=== PATIENT | female | born 1950 | race Caucasian/White ===

== ENCOUNTER 2019-06-27 19:48 | Inpatient (IN) | payer OTHER ==
[~2019-06-27] VITALS: Ht 157.5 cm; Wt 95.3 kg
[2019-06-27 02:30] VITALS: BP 143/93
[~2019-06-27 19:48] MED LIST: AMLODIPINE BESYL5 MG PO; CALCIUM CARBON500 MG PO; CLONAZEPAM0.5 MG PO; DIOVAN160 MG PO; LEVOTHYROXINE50 MCG PO; METOPROLOL TART50 MG PO; ULTRAM 50MG50 MG PO; VITAMIN B-121000 MCG PO; VITAMIN D1000 UNI1 PO; XARELTO10 MG PO
--- OUTSIDE RECORDS SUMMARY | 2019-06-27 19:51 | XMS REPORT | Clinical Summary ---
Author Author [facility] Organization [facility] Address Unknown Phone Unavailable Care Team Providers Care Television Reporter Name Role Phone Asked, No Pcp PCP Unavailable Allergies Not on File Medications Not on file Active Problems Not on file Social History Date Tobacco Use Types Packs/Day Years Used Never Assessed Sex Assigned at Date Recorded Not on file Industry Job Start Date Occupation Not on file Not on file Not on file Travel End Travel History Travel Start No recent travel history available. 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
--- OUTSIDE RECORDS SUMMARY | 2019-06-27 19:51 | XMS REPORT ---
Author Author [facility] Address Unknown Phone Unavailable Care Team Providers Care Nurse Private Duty Name Role Phone Unavailable Unavailable Problems This patient has no known problems. Allergies, Adverse Reactions, Alerts This patient has no known allergies or adverse reactions. Medications This patient has no known medications. Results Test Description Test Time Test Comments Text Results Atomic Results Result Comments SCR MAMM BILATERAL NAVIN CAD DIGITAL 2019-05-12 11:12:02 - SCR MAMM BILATERAL NAVIN CAD DIGITALBILATERAL DIGITAL SCREENING MAMMOGRAM 3D/2D WITH CAD: 05/11/2019CLINICAL: Asymptomatic. Digital breast tomosynthesis was performed in addition to routine CC and MLO views. Current mammographic images were evaluated by either a Molecule Synth M-Vu or a Clixtr ImageChecker CAD (computer aided detection system). Comparison is made to exams dated 08/08/2017 mammogram, mammogram, and 05/26/2015 mammogram - [facility]. The tissue of both breasts is predominantly fatty. There is a benign-appearing asymmetry in both breasts. No suspicious mass, architectural distortion, malignant type calcification, or lymph node abnormality detected. Breast architecture is stable compared to prior exams.IMPRESSION: BENIGNThere is no mammographic evidence of malignancy. Resume annual screening mammography in one year. Gerardo Mcallister M.D. rb/:05/12/2019 11:12:02 Retail Banker: Elidia Fuentes [facility], [facility] sent: BIR ADS 1-2 Normal Mammogram BI-RADS: 2 Benign
--- NOTE | 2019-06-27 20:55 | NUR ---
4MG IV ZOFRAN GIVEN
[2019-06-27] MEDS ORDERED: ONDANSETRON HCL INJ 2MG/ML 2ML 2 MG/ML VIAL ONE (20:59)
--- NOTE | 2019-06-27 21:19 | Diagnostic Imaging Report ---
History: Headaches Comparison studies: None Technique: Axial images were obtained from the skull base to the vertex. Coronal and sagittal reconstructions obtained from the axial data. Dose modulation, iterative reconstruction, and/or weight based adjustment of the mA/kV was utilized to reduce the radiation dose to as low as reasonably achievable. Intravenous contrast: None Findings: Scalp/skull: No abnormalities. No fractures, blastic or lytic lesions. Extra-axial spaces: No masses. No fluid collections. Brain sulci: Appropriate for age. Ventricles: Normal in size and configuration. No hydrocephalus. Parenchyma: No abnormal densities. No masses, hemorrhage, acute or chronic cortical vascular insults. Sellar/suprasellar region: No abnormalities Craniocervical junction: Patent foramen magnum. No Chiari one malformation. Incidental findings: None. IMPRESSION: No abnormalities. Signed by: Dr. Rafat Whitaker M.D. on 06/27/2019 9:16 PM
[2019-06-27 21:32] LABS: BASOPHILS % 0.3 % (0.0-1.0); EOSINOPHILS # (AUTO) 0.2 (0.0-0.4); EOSINOPHILS % 2.4 % (0.0-6.0); HEMATOCRIT 46.8 % (34.2-44.1); HEMOGLOBIN 15.1 g/dL (12.0-16.0); LYMPHOCYTES # (AUTO) 1.6 (1.0-3.2); MEAN CORPUSCULAR HEMOGLOBIN 29.9 pg (28-32); MEAN CORPUSCULAR HGB CONC 32.3 g/dL (31-35); MEAN CORPUSCULAR VOLUME 92.7 fL (81-99); MONOCYTES # (AUTO) 0.4 (0.2-0.8); MONOCYTES % 4.8 % (4.4-11.3); NEUTROPHILS # (AUTO) 6.7 (2.1-6.9); NEUTROPHILS % 74.2 % (38.7-80.0); PLATELET COUNT 248 x10e3/uL (140-360); RED BLOOD COUNT 5.05 x10e6/uL (3.6-5.1); RED CELL DISTRIBUTION WIDTH 13.5 % (11.7-14.4)
[2019-06-27] MEDS ORDERED: MORPHINE SULFATE 2 MG/ML SYR 1ML IV STA (21:34)
[2019-06-27] MEDS ORDERED: ONDANSETRON HCL INJ 2MG/ML 2ML 2 MG/ML VIAL IV STA (21:34)
--- NOTE | 2019-06-27 21:38 | Diagnostic Imaging Report ---
EXAMINATION: PA and lateral views of the chest. COMPARISON: Chest 2 views 11/08/2015 CLINICAL HISTORY: Chest pain for one week DISCUSSION: Lines/tubes: None. Lungs: The lungs are well inflated and clear. There is no evidence of pneumonia or pulmonary edema. Pleura: There is no pleural effusion or pneumothorax. Heart and mediastinum: Stable mild enlargement of the cardiac silhouette. Pulmonary vasculature is normal. Bones and soft tissues: No acute bony abnormalities. Mild age-appropriate degenerative changes in the thoracic spine. IMPRESSION: Stable mild enlargement of the cardiac silhouette, without acute cardiopulmonary abnormalities. Signed by: Dr. Kolby Garcia M.D. on 06/27/2019 9:35 PM
[2019-06-27 21:43] LABS: INR 1.19; PROTHROMBIN TIME 15.7 seconds (11.9-14.5)
[2019-06-27 21:44] LABS: PARTIAL THROMBOPLASTIN TIME 33.9 seconds (23.8-35.5)
[2019-06-27] MEDS ORDERED: SODIUM CHLORIDE 0.9% 500ML 500 ML IV ONE (21:45)
[2019-06-27 21:53] LABS: ALBUMIN 3.5 g/dL (3.5-5.0); ALBUMIN/GLOBULIN RATIO 0.8 (0.8-2.0); ANION GAP 16.8 mmol/L (8-16); CALCIUM 9.4 mg/dL (8.4-10.2); CREATININE, SERUM 1.02 mg/dL (0.57-1.11); POTASSIUM 4.8 mmol/L (3.5-5.1)
[2019-06-27 22:00] LABS: CREATINE KINASE MB 0.6 ng/mL (0-5.0)
[2019-06-27 22:56] LABS: EOSINOPHILS % (MANUAL) 2 % (0-7); LYMPHOCYTES % (MANUAL) 19 % (19-48); MONOCYTES % (MANUAL) 4 % (3.4-9.0); NEUTROPHILS % (MANUAL) 75 % (40-74); PLATELET ESTIMATE ADEQUATE
[2019-06-27] MEDS ORDERED: ACETAMIN/BUTALBITAL/CAFFEINE TAB PO ONE (23:00)
[2019-06-27] MEDS ORDERED: TRAMADOL HCL 50 MG TAB PO ONE (23:15)
[2019-06-27] MEDS ORDERED: HYDRALAZINE HCL50 MG (23:21)
[2019-06-27] MEDS ORDERED: NEXIUM40 MG (23:21)
--- NOTE | 2019-06-27 23:50 | NUR ---
REPORT GIVEN TO YELITZA HILL RN FOR CONTINUITY OF CARE.
[2019-06-27] MEDS ORDERED: HYDRALAZINE HCL 20 MG/ML VIAL IV STA (23:53)
[2019-06-27] MEDS ORDERED: HYDRALAZINE HCL 20 MG/ML VIAL ONE (23:58)
[2019-06-28] VITALS (10 sets, daily range): BP systolic 127–144; BP diastolic 72–99
[2019-06-28] MEDS ORDERED: HYDRALAZINE HCL 20 MG/ML VIAL IV PRN
--- OUTSIDE RECORDS SUMMARY | 2019-06-28 00:09 | XMS REPORT | Clinical Summary ---
Author Author [facility] Organization [facility] Address Unknown Phone Unavailable Care Team Providers Care Custom Tailor Name Role Phone Asked, No Pcp PCP [...] INFLUENZA VACCINE 05/06/2019 Results Not on fileafter 06/27/2018 Insurance Type Payer Benefit Subscriber ID Effective Phone Address Plan / Dates Group HMO [employer] TEXANPLUS xxxxxxxxx 2016-P CLAUDIO gale Advance Directives For more information, please contact: [phone] Patient Assistant Professor Of Music Explanation Type Date Recorded Advance Directives, Living Will and Medical Power of Marketing Programs Manager
--- NOTE | 2019-06-28 00:49 | NUR ---
PT PLACED ON TELE BOX 20
--- NOTE | 2019-06-28 01:00 | NUR ---
PT ARRIVED ON THE UNIT VIA WHEELCHAIR AT 0100. PT IS A&OX3. RESPIRATION IS EVEN AND UNLABORED, NO DISTRESS NOTED. BED IN THE LOWEST POSITION, LOCKED, AND CALL LIGHT WITHIN REACH. ADMISSION AND HEAD TO TOE ASSESSMENT COMPLETE. WILL CONTINUE TO MONITOR.
[2019-06-28] MEDS: ONDANSETRON HCL INJ 2MG/ML 2ML 2 MG/ML VIAL IV PRN ×2 (04:30→12:41)
[2019-06-28 07:31] LABS: BASOPHILS % 0.2 % (0.0-1.0); EOSINOPHILS % 0.4 % (0.0-6.0); HEMATOCRIT 44.5 % (34.2-44.1); HEMOGLOBIN 14.4 g/dL (12.0-16.0); LYMPHOCYTES % 23.8 % (18.0-39.1); MEAN CORPUSCULAR HEMOGLOBIN 30.3 pg (28-32); MEAN CORPUSCULAR HGB CONC 32.4 g/dL (31-35); MEAN CORPUSCULAR VOLUME 93.5 fL (81-99); MONOCYTES # (AUTO) 0.6 (0.2-0.8); MONOCYTES % 7.6 % (4.4-11.3); NEUTROPHILS # (AUTO) 5.7 (2.1-6.9); NEUTROPHILS % 67.6 % (38.7-80.0); PLATELET COUNT 231 x10e3/uL (140-360); RED BLOOD COUNT 4.76 x10e6/uL (3.6-5.1); RED CELL DISTRIBUTION WIDTH 13.5 % (11.7-14.4)
[2019-06-28 07:53] LABS: ALANINE AMINOTRANSFERASE 38 IU/L (0-55); ALBUMIN/GLOBULIN RATIO 0.9 (0.8-2.0); ALKALINE PHOSPHATASE 103 IU/L (40-150); ANION GAP 11.1 mmol/L (8-16); BLOOD UREA NITROGEN 13 mg/dL (7-26); BUN/CREATININE RATIO 14 (6-25); CALCIUM 8.9 mg/dL (8.4-10.2); CARBON DIOXIDE 28 mmol/L (22-29); CHLORIDE 100 mmol/L (98-107); CREATININE, SERUM 0.91 mg/dL (0.57-1.11); EST GLOMERULAR FILTRATION RATE > 60 ML/MIN (60-); GLUCOSE 95 mg/dL (74-118); POTASSIUM 4.1 mmol/L (3.5-5.1); SODIUM 135 mmol/L (136-145)
[2019-06-28 08:08] LABS: CREATINE KINASE 31 IU/L (29-168)
[2019-06-28] MEDS: HYDRALAZINE HCL 100 MG TABLET PO SCH ×2 (08:09→18:01)
[2019-06-28] MEDS: MORPHINE SULFATE 2 MG/ML SYR 1ML IV PRN ×2 (08:20→15:43)
[2019-06-28] MEDS: METOPROLOL TARTRATE 50 MG TAB PO SCH ×2 (08:20→18:01)
[2019-06-28] MEDS: LEVOTHYROXINE SODIUM 50 MCG TAB PO SCH (08:25)
[2019-06-28] MEDS: OYST-CAL-D 500MG TABLET PO SCH (08:25)
[2019-06-28] MEDS: CHOLECALCIFEROL 1,000 UNIT TAB PO SCH (08:25)
[2019-06-28] MEDS: PANTOPRAZOLE SOD 40 MG TABEC PO SCH (08:25)
[2019-06-28] MEDS: CYANOCOBALAMIN 1,000 MCG TAB PO SCH (08:25)
[2019-06-28] MEDS: RIVAROXABAN 10 MG TABLET PO SCH (08:25)
[2019-06-28] MEDS ORDERED: CLONAZEPAM 0.5 MG TAB PO SCH (09:00)
[2019-06-28] MEDS ORDERED: HYDRALAZINE HCL 100 MG SCH (09:00)
[2019-06-28] MEDS ORDERED: NIFEDIPINE CR 30 MG TAB PO ONE (10:00)
--- NOTE | 2019-06-28 11:45 | NUR ---
PT DOWN VIA WC TO RADIOLOGY FOR MRI HEAD AND NECK
--- NOTE | 2019-06-28 12:15 | NUR ---
PT BACK IN ROOM UNABLE TO DO MRI UNABLE TO LAY FLAT
--- NOTE | 2019-06-28 12:40 | NUR ---
PT GIVEN ZOFRAN FOR NAUSEA ORDER.
--- NOTE | 2019-06-28 16:03 | NUR ---
Off unit via for MRI.
--- NOTE | 2019-06-28 16:09 | History and Physical ---
CHIEF COMPLAINT: Severe headache with elevated blood pressure prior to blood pressure medication adjustment. HISTORY OF PRESENT ILLNESS: This is a 69-year-old female with a very high blood pressure, developed headaches; went to her neon sign mechanic, Dr. Garcia, and her medication was adjusted. The hydralazine dosing was increased. The patient is at baseline with hypertension, atrial fibrillation. She is on Xarelto. The patient is otherwise, stable. She also has history of multiple TIA. Currently, the patient headache has improved. PAST MEDICAL HISTORY: Hypertension with recurrent hypertensive urgency, atrial fibrillation, hypothyroidism, and transient ischemic attack. PAST SURGICAL HISTORY: Noncontributory. SOCIAL HISTORY: The patient does not smoke or use alcohol. No regular drugs. ALLERGIES: ACETAMINOPHEN AND CODEINE. HOME MEDICATIONS: List is reviewed. REVIEW OF SYSTEMS: Headache, improving. PHYSICAL EXAMINATION: VITAL SIGNS: Temperature is 96, blood pressure 143/93, pulse rate 87, and respirations 18. GENERAL: The patient is not in acute distress. HEENT: Normocephalic, atraumatic. Pupils are reactive, anicteric. NECK: Supple grossly. PULMONARY: Diminished breath sounds. CARDIOVASCULAR: S1, S2. Irregularly irregular, rate controlled. Atrial fibrillation. ABDOMEN: Soft, nontender, non-distention. EXTREMITIES: No cyanosis or edema. NEUROLOGIC: No gross focal deficit. LABORATORY DATA: WBC is 9, hemoglobin 15, hematocrit 47, and platelets 248. Chemistry; sodium is 140, potassium 3.8, chloride 101, bicarb 27, BUN 14, creatinine 1.0, glucose is 118. IMAGING TESTS: CT brain and chest x-ray, otherwise negative. IMPRESSION: Hypertensive urgency associated with causing the headaches. PLAN: Adjust the patient's medication. MRI of the brain without contrast to be sure without any . The patient is otherwise stable. MD MARTHA Chakraborty/GREGORY /[id number]
[2019-06-28 16:52] LABS: CREATINE KINASE 38 IU/L (29-168)
[2019-06-28] MEDS: TRAMADOL HCL 50 MG TAB PO PRN (20:12)
--- NOTE | 2019-06-28 20:51 | NUR ---
AM DOSE OF PROCARDIA NOT ADMINISTERED ORDERED. DR CANO NOTIFIED, ORDERS RECEIVED TO GIVE DOSE NOW.
[2019-06-29] VITALS (9 sets, daily range): BP systolic 130–185; BP diastolic 68–102
[2019-06-29] MEDS: NIFEDIPINE CR 30 MG TAB PO SCH (05:05)
[2019-06-29] MEDS: TRAMADOL HCL 50 MG TAB PO PRN (05:05)
[2019-06-29] MEDS: ONDANSETRON HCL INJ 2MG/ML 2ML 2 MG/ML VIAL IV PRN (05:25)
[2019-06-29] MEDS: HYDRALAZINE HCL 100 MG TABLET PO SCH ×3 (07:46→22:17)
[2019-06-29] MEDS: LEVOTHYROXINE SODIUM 50 MCG TAB PO SCH (07:46)
[2019-06-29] MEDS: METOPROLOL TARTRATE 50 MG TAB PO SCH ×2 (07:46→16:18)
[2019-06-29] MEDS: OYST-CAL-D 500MG TABLET PO SCH (08:37)
[2019-06-29] MEDS: PANTOPRAZOLE SOD 40 MG TABEC PO SCH (08:37)
[2019-06-29] MEDS: RIVAROXABAN 10 MG TABLET PO SCH (08:38)
[2019-06-29] MEDS: CYANOCOBALAMIN 1,000 MCG TAB PO SCH (08:38)
[2019-06-29] MEDS: CHOLECALCIFEROL 1,000 UNIT TAB PO SCH (08:38)
[2019-06-29] MEDS ORDERED: HYDRALAZINE HCL 20 MG/ML VIAL IV PRN (10:15)
[2019-06-29] MEDS ORDERED: HYDROMORPHONE 1MG/1ML INJ IV PRN (10:15)
[2019-06-29] MEDS ORDERED: PROMETHAZINE 12.5MG/ NACL 0.9% 12.5 MG/50 ML BAG IV PRN (10:15)
[2019-06-29] MEDS: CELECOXIB 100 MG CAP PO SCH ×2 (10:15→16:10)
[2019-06-29] MEDS ORDERED: SODIUM CHLORIDE 0.9% 250ML 250 ML ONE (10:41)
[2019-06-29] MEDS ORDERED: LORAZEPAM INJ 2 MG/ML VIAL IV NR (12:15)
--- NOTE | 2019-06-29 14:08 | Diagnostic Imaging Report ---
Exam: Brain MRI without IV contrast History: Headache and nausea Comparison studies: Head CT 06/27/2019. Prior brain MRI of 11/10/2015 is unavailable on the PACS for comparison at the time of dictation. Technique: Sagittal and axial T2 FS, axial DWI, axial T2*GRE, axial T1 FLAIR and axial coronal T2 FLAIR. Intravenous contrast: None Findings: Several pulse sequences are limited by artifacts related to patient motion. Scalp: Normal in signal. No masses. Bone marrow: Normal in signal intensity. Brain sulci: Appropriate for age. Ventricles: Normal in size. No hydrocephalus. Extra axial spaces: No mass, no fluid collection. Parenchyma: No mass, acute hemorrhage or acute ischemia. Scattered T2 FLAIR hyperintense foci in the supratentorial white matter are nonspecific but are most compatible with chronic microvascular ischemic changes. Suprasellar region: No abnormalities. Craniocervical junction: Patent foramen magnum. No Chiari malformation. Vessels: Normal flow-voids in the arteries and sinuses. IMPRESSION: 1. No acute intracranial abnormalities. 2. Mild to moderate supratentorial chronic microvascular ischemic changes. Signed by: Dr. Arash Beckford M.D. on 06/29/2019 2:05 PM
--- NOTE | 2019-06-29 14:13 | Diagnostic Imaging Report ---
History: Headache and nausea Comparison studies: None. Technique: Axial 2-D [id number]-[id number] cervical with 3-D MIP reformats. Contrast: None If present, stenosis is calculated utilizing the NASCET method which calculates the degree of stenosis with reference to the normal lumen of the carotid artery distal to the stenosis. Findings: Exam is moderately limited by artifacts related to patient motion. Aortic arch: Obscured by artifacts. Common carotid arteries: Patent, no flow limiting stenosis. Right carotid bulb: Patent, no (0%) stenosis by NASCET criteria. Left carotid bulb: Patent, no (0%) stenosis by NASCET criteria. Internal carotid arteries: Patent, no flow limiting stenosis. Vertebral arteries: Origins obscured by artifacts. Otherwise patent, no flow limiting stenosis. IMPRESSION: Exam limited by motion artifacts. In spite of limitations: 1. Patent carotid and vertebral arteries without flow limiting stenosis. 2. No (0%) stenosis at the carotid bulbs. Signed by: Dr. Arash Beckford M.D. on 06/29/2019 2:09 PM
[2019-06-29] MEDS ORDERED: VALPROATE SOD INJ 500 MG in SODIUM CHLORIDE 0.9% 100 ML 100 ML IV SCH (15:00)
--- NOTE | 2019-06-29 15:25 | NUR ---
Visit made by the Spiritual Care Department Pastoral Visitor, Wendy Roche. PV provided pastoral presence, prayer, hospitality, and supportive listening. Pastoral Visitor informed pt/family of the scope of [facility] and availability. GWEN BRIONES Lead Former Spiritual Care Department O: [phone] Pager: [phone] ([phone] number calling from)
[2019-06-29] MEDS: PROMETHAZINE 25MG/ NS 50ML (IV) IV SCH ×2 (16:10→22:17)
[2019-06-29] MEDS: METHYLPREDNISOLONE SOD SUCC 125 MG/2ML VIAL IV SCH ×2 (16:10→22:17)
[2019-06-29] MEDS: SODIUM CHLORIDE 0.9% 1000ML 1,000 ML IV SCH (16:18)
--- NOTE | 2019-06-29 21:52 | Consultation ---
DATE OF CONSULTATION: 06/29/2019 Neurology Consult Note HISTORY OF PRESENT ILLNESS: Ms. Fenton is a 69-year-old frsrf-rfxy-ajdcxklv woman with past medical history significant for hypertension (poorly controlled), atrial fibrillation, and reported multiple prior strokes, admitted to [facility] on June 28, 2019, with hypertensive urgency and a severe headache. A Neurology consultation is requested for further evaluation and treatment of headaches. Ms. Fenton describes her headaches as follows: The pain is diffused. The pain is described as constant, throbbing, and is rated as a 10/10. Associated with the headaches are photophobia, phonophobia, nausea without vomiting, and dizziness, which is further described as unsteady sensation. Ms. Fenton does not report an aura or visual disturbance associated with the headaches. She does not report focal neurological deficits associated with the headaches. The headaches described above began approximately 3 years ago and occurred nearly every day. Ms. Fenton has not identified any triggers for her headaches. The patient reports nothing improves her headaches. Ms. Fenton does not report a history of frequent headaches prior to 3 years ago. There is no known family history of migraines or other primary headache disorder. Despite experiencing nearly daily headaches for the past 3 years, Ms. Fenton has not sought evaluation or treatment for her headaches until this time. REVIEW OF SYSTEMS: Nausea, anxiety, headache, photophobia, phonophobia, dizziness. Otherwise, a 12-point review of systems is negative. PAST MEDICAL HISTORY: Hypertension, atrial fibrillation, thyroid disease, gastroesophageal reflux disease, chronic fatigue syndrome, osteoporosis, and multiple prior "mini strokes," which is probably chronic small-vessel ischemic disease. PAST SURGICAL HISTORY: Hysterectomy, cholecystectomy, section. PAST HOSPITALIZATIONS: Surgeries/procedures as listed, multiple prior hospitalizations for dehydration, urinary tract infection, hypertensive urgency. FAMILY MEDICAL HISTORY: Hypertension, morbid obesity, breast and colon cancer. SOCIAL HISTORY: Ms. Fenton is . She is retired. There is no reported current or prior tobacco, alcohol, or recreational drug use. HOME MEDICATIONS: 1. Xarelto 20 mg by mouth daily. 2. Hydralazine 100 mg by mouth twice daily. 3. Metoprolol 50 mg by mouth twice daily. 4. Levothyroxine 25 mcg by mouth daily. 5. Nexium 40 mg by mouth daily. 6. Clonazepam 0.5 mg by mouth daily. 7. Tramadol 50 mg by mouth every 6 hours as needed for pain. 8. Calcium carbonate 1250 mg by mouth daily. 9. Vitamin D3 of 2000 units by mouth daily. 10. Vitamin B12 of 100 mcg by mouth daily. HOSPITAL MEDICATIONS: 1. Celecoxib. 2. Hydralazine. 3. Levothyroxine. 4. Metoprolol. 5. Nifedipine. 6. Zofran. 7. Protonix. 8. Xarelto. ALLERGIES: ACETAMINOPHEN, CODEINE. NO KNOWN FOOD ALLERGIES. NO KNOWN ALLERGIES TO LATEX. NO KNOWN ALLERGIES TO IODINE OR OTHER CONTRAST MATERIALS. PHYSICAL EXAMINATION: VITAL SIGNS: Height 62 inches, weight 210 pounds, BMI is 38.4 kg/m2. Blood pressure 138/89 mmHg, pulse 92 beats per minute, respiratory rate 16 breaths per minute, oxygen saturation at 93% on room air. GENERAL: The patient is drowsy. She briefly opens her eyes to verbal stimulation. Morbidly obese. HEENT: Normocephalic, atraumatic. Pupils are equal, round, and reactive to light. Moist mucous membranes. NECK: Supple. No appreciable thyromegaly. No appreciable carotid bruits. CARDIOVASCULAR: S1, S2, regular rate and rhythm. No murmurs, rubs, or gallops. RESPIRATORY: Clear to auscultation bilaterally. No wheezes, rhonchi, or rales. EXTREMITIES: The skin is warm and dry. No clubbing or cyanosis. Trace pretibial pitting edema. The posterior tibial and dorsalis pedis pulses are 1+ and symmetric. SKIN: No rashes or lesions. NEUROLOGIC: Memory/Attention: The patient is drowsy, she briefly opens her eyes to verbal stimulation. Ms. Fenton is oriented to person, place ([facility], [facility], [facility]), time (month, year), and situation. Cranial Nerves: Cranial nerve I - not tested. Cranial nerve II, III, IV, and - pupils are equal and round, react briskly to light (from 4 mm to 2 mm). Extraocular movements intact. No nystagmus. Cranial nerve V - sensation to light touch is intact in the bilateral V1 through V3 distributions. Strength of the temporalis and masseter muscles is within normal limits. Cranial nerve VII - the face is symmetric as are all facial movements. Strength is within normal limits. Cranial nerve VIII - hearing is intact to finger rub bilaterally. Cranial nerve IX, X - the soft palate elevates equally and symmetrically. Cranial nerve XI - normal strength of the bilateral sternocleidomastoid and trapezius muscles. Cranial nerve XII - the tongue protrudes midline and moves symmetrically from igyb-kf-xilg. Strength: Bulk is normal. Strength is 5/5 in the bilateral deltoids, biceps, triceps, wrist flexors and extensors, finger flexors and extensors, intrinsic hand muscles, hip flexors, knee flexors and extensors, ankle dorsiflexion and plantar flexion, and intrinsic foot muscles. Tone is normal. DTRs: Deep tendon reflexes are 1+ and symmetric at the triceps, biceps, brachioradialis, and patellas. Deep tendon reflexes are trace and symmetric at the Achilles. Plantar responses are flexor bilaterally. Sensation: Sensation is intact to light touch in both arms and both legs. Cerebellar: Unable to assess secondary to the patient being drowsy and uncooperative with this portion of the examination. Gait: Deferred. Speech: Spontaneous speech is normal without appreciable dysarthria or aphasia. Repetition is intact. Involuntary movements: None. Pronator Drift: None. LABORATORY DATA: A comprehensive metabolic panel is significant only for a mildly elevated AST of 73, total protein of 6.4, and albumin of 3.0. Cardiac enzymes are negative x3. The CBC with differential and platelets is unremarkable. PT 15.7, INR 1.19, PTT 33.9. DIAGNOSTIC STUDIES: Electrocardiogram of 06/27/2019: Atrial fibrillation at 97 beats per minute. Chest x-ray of 06/27/2019: Stable mild enlargement of cardiac silhouette, without acute cardiopulmonary abnormalities. CT of the brain without contrast on 06/27/2019: On my review, there is no evidence of recent large territorial ischemia, hemorrhage, mass, or mass effect. Cerebral volumes appear appropriate for age. There are findings suggestive of chronic small- vessel ischemic disease. MRI of the brain without contrast 06/29/2019: On my review, there is no evidence of recent or remote large territorial ischemia, hemorrhage, mass, or mass effect. Cerebral volumes are appropriate for age. There are scattered T2/FLAIR hyperintense foci throughout the supratentorial white matter compatible with zffi-xk-tfbksgxo chronic small-vessel ischemic disease. ASSESSMENT AND PLAN: Ms. Fenton is a 69-year-old dogqz-vdrs-tlbxjhdh woman with past medical history as detailed, admitted to [facility] on June 29, 2019, with hypertensive urgency and headache. Other than excessive drowsiness, the patient's neurological examination is nonfocal. Her laboratory data and other diagnostic studies have been reviewed and are documented above. In my opinion, Ms. Fenton has probable migraine without aura, intractable, with status migrainosus. RECOMMENDATIONS: For treatment are as follows: 1. Sodium chloride 0.9% at 125 mL/h intravenously will be ordered. In addition to volume resuscitation with intravenous fluids, Ms. Fenton will be prescribed a migraine cocktail in an effort to significantly improve/alleviate her current headache. 2. Promethazine 25 mg intravenously every 6 hours x2 doses will be prescribed. 3. Methylprednisolone 125 mg intravenously every 6 hours x2 doses will be prescribed. 4. Valproate 500 mg intravenously every 6 hours x2 doses will be prescribed. 5. Defer treatment of the remaining medical comorbidities to the primary and other services following the patient. Thank you for this consultation. I will continue to follow the patient while she remains in the hospital. TIME SPENT: 50 minutes. Shannan López MD CP/GREGORY /[id number] MTDD
--- NOTE | 2019-06-29 23:57 | Consultation ---
DATE OF CONSULTATION: Cardiology consultation. CHIEF COMPLAINT: The patient is a 69-year-old with headache. HISTORY OF PRESENT ILLNESS: The patient is a 69-year-old with headache, who came to the emergency room. According to the patient, it had been going on for several days and it was getting worse. The patient has a history of hypertension and was concerned because of blood pressure was high. The patient had no chest pain, no shortness of breath, no nausea, no vomiting. PAST MEDICAL HISTORY: Significant for, 1. Previous cardiac cath done in 2014 demonstrating normal coronary arteries and normal left ventricular size and function. 2. History of chronic atrial fibrillation. 3. Hypothyroidism. 4. Chronic back pain. MEDICATIONS: At home include, 1. Synthroid. 2. Tramadol. 3. Xarelto. 4. Metoprolol. 5. Hydralazine. SOCIAL HISTORY: The patient does not drink and does not smoke. FAMILY HISTORY: There is no known family history of coronary artery disease. PHYSICAL EXAMINATION: GENERAL: The patient is a well-developed, well-nourished female, in no distress. VITAL SIGNS: Included a temperature of 96.3, blood pressure of 146/85. HEAD, EARS, EYES, NOSE, and THROAT EXAM: The patient's cranium was normocephalic and atraumatic. Extraocular muscles were intact. Sclerae were anicteric. Pupils were equal, round, reactive to light. There is no pallor or cyanosis of the oral mucosa. NECK: Supple. No jugular venous distention. No carotid bruits. CHEST EXAM: Demonstrated rhonchi bilaterally. CARDIAC EXAM: Demonstrated an irregularly irregular rhythm with a short 2/6 systolic murmur. ABDOMINAL EXAM: Demonstrated good bowel sounds. No tenderness. No masses. EXTREMITIES: No clubbing, no cyanosis, and no edema. NEUROLOGICAL: The patient was alert and oriented x3. Cranial nerves II through XII are intact. Motor strength was +5/+5 in all limbs. DIAGNOSTIC DATA: The patient's EKG demonstrated atrial fibrillation with a well-controlled ventricular response. IMPRESSION: The patient is a 69-year-old with migraine headaches and hypertension. The patient's blood pressure is currently controlled at 146/85. The patient remains in chronic atrial fibrillation and will need to continue on Xarelto. There are no active cardiac patients at this time. MD JAY Watts/GREGORY /[id number] cc: Jonn Palmer MD
[2019-06-30] VITALS (9 sets, daily range): BP systolic 104–141; BP diastolic 57–88
[2019-06-30] MEDS ORDERED: VALPROATE SOD INJ 500 MG in SODIUM CHLORIDE 0.9% 100 ML 100 ML IV SCH (01:00)
[2019-06-30] MEDS: SODIUM CHLORIDE 0.9% 1000ML 1,000 ML IV SCH (02:46)
[2019-06-30] MEDS: NIFEDIPINE CR 30 MG TAB PO SCH (05:25)
[2019-06-30] MEDS: HYDRALAZINE HCL 100 MG TABLET PO SCH ×3 (06:34→21:09)
--- NOTE | 2019-06-30 07:15 | NUR ---
Received patient, lying in bed with eyes open. Respiration even and unlabored without SOB.Wyatt light in reach.
[2019-06-30] MEDS: CELECOXIB 100 MG CAP PO SCH ×2 (08:20→16:43)
[2019-06-30] MEDS: METOPROLOL TARTRATE 50 MG TAB PO SCH ×3 (08:20→16:44)
[2019-06-30] MEDS: RIVAROXABAN 10 MG TABLET PO SCH (08:20)
[2019-06-30] MEDS: PANTOPRAZOLE SOD 40 MG TABEC PO SCH (08:20)
[2019-06-30] MEDS: LEVOTHYROXINE SODIUM 50 MCG TAB PO SCH (08:20)
--- NOTE | 2019-06-30 08:39 | NUR ---
Patient c/o left arm and left leg pain, also complaining of intermittent chest pain. Notified clay house worker Radhames, EKG stat was ordered and it shows Afib with RVR. Lopressor 5 mg IV is given as ordered one time. Respiration even and unlabored without SOB. Call light in reach.
[2019-06-30] MEDS ORDERED: METOPROLOL TARTRATE INJ 1 MG/ML VIAL IV ONE (08:45)
[2019-06-30 09:24] LABS: CREATINE KINASE MB 1.9 ng/mL (0-5.0)
--- NOTE | 2019-06-30 13:12 | NUR ---
Patient c/o headache level 7 on 0-10 scale. Patient does not have PRN pain medication. Notified Dr. Palmer. He suggested to notify Dr. López to ask for suggestions for headache medicine because patient has allergies to Acetaminophen.
--- NOTE | 2019-06-30 13:14 | NUR ---
Notified Dr. López about patient complaining of headache. Orders given to give Toradol IV 30 mg and reglan IV 10 mg times 2 doses and resume NS at 75 ml/hour. Notified Dr. Palmer about these order and was given an order to change 0.9 NACL IV to half NS.
[2019-06-30] MEDS: SODIUM CHLORIDE 0.45% 1,000 ML IV SCH (14:05)
[2019-06-30] MEDS: KETOROLAC TROMETHAMINE 30 MG/ML VIAL IV SCH ×2 (14:06→21:08)
[2019-06-30] MEDS: METOCLOPRAMIDE HCL 10 MG/2ML VIAL IV SCH ×2 (14:06→20:08)
--- NOTE | 2019-06-30 18:57 | NUR ---
Report given to restaurant shift leader. patient lying in bed with eyes open. Respiration even and unlabored without SOB. IV fluid infusing, telemetry on. Call light in reach.
--- NOTE | 2019-06-30 19:00 | NUR ---
patient received awake, alert, lying quietly in bed. no c/o pain noted. ivf continue to infuse without difficulty. pm assessment complete. patient instructed to call for assistance when needed.
[2019-06-30] MEDS ORDERED: KETOROLAC TROMETHAMINE 30 MG/ML VIAL ONE (21:11)
[2019-06-30] MEDS ORDERED: METOCLOPRAMIDE HCL 10 MG/2ML VIAL ONE (21:11)
[2019-07-01] VITALS: BP 133/93
--- NOTE | 2019-07-01 | NUR ---
patient appears to be resting quietly. no c/o pain noted. ivf continue to infuse without difficulty.
[2019-07-01] MEDS: SODIUM CHLORIDE 0.45% 1,000 ML IV SCH (03:38)
[2019-07-01 04:00] VITALS: BP 129/85
[2019-07-01] MEDS: NIFEDIPINE CR 30 MG TAB PO SCH (06:00)
[2019-07-01] MEDS: HYDRALAZINE HCL 100 MG TABLET PO SCH (06:00)
--- NOTE | 2019-07-01 07:00 | NUR ---
PATIENT IS AWAKE AND IN STABLE CONDITION WITH NO S/S OF RESPIRATORY DISTRESS. NO PAIN VOICED. IV FLUIDS INFUSING. TELEMETRY APPLIED. CALL LIGHT IS WITHIN REACH, PATIENT INSTRUCTED TO CALL FOR ASSISTANCE NEEDED
[2019-07-01 07:43] VITALS: BP 135/84
[2019-07-01] MEDS: CELECOXIB 100 MG CAP PO SCH (08:32)
[2019-07-01] MEDS: RIVAROXABAN 10 MG TABLET PO SCH (08:33)
[2019-07-01] MEDS: LEVOTHYROXINE SODIUM 50 MCG TAB PO SCH (08:33)
[2019-07-01] MEDS: METOPROLOL TARTRATE 50 MG TAB PO SCH (08:33)
[2019-07-01] MEDS: PANTOPRAZOLE SOD 40 MG TABEC PO SCH (08:33)
[2019-07-01 08:51] VITALS: BP 135/84
--- NOTE | 2019-07-01 10:56 | NUR ---
CALLED AND SPOKE WITH DR. CANO REGARDING DISCHARGE MEDICATIONS AND DR. LOPEZ APPROVAL AND CLEARANCE. CALLED AND SPOKE WITH DR. LOPEZ REGARDING CLEARANCE AND THE PRESCRIPTION DR. CANO LEFT FOR THE PATIENT- RECEIVED AN OKAY ON DISCHARGE MEDICATIONS AND CLEARANCE FOR DISCHARGE.
[2019-07-01 11:07] VITALS: BP 138/85
[2019-07-01] MEDS ORDERED: NORTRIPTYLINE H25 MG PO (11:10)
[2019-07-01] MEDS ORDERED: CELEBREX100 MG PO (11:10)
--- NOTE | 2019-07-01 12:01 | NUR ---
PATIENT DISCHARGE HOME- PATIENT OFF THE UNIT AT 1153 PER WHEELCHAIR ACCOMPANIED BY RN AND STAFF MEMBER TO THE FRONT LOBBY. PATIENT IN STABLE CONDITION WITH NO S/S OF RESPIRATORY DISTRESS. NO PAIN VOICED. IV REMOVED WITH TIP INTACT. DISCHARGE TEACHING, INSTRUCTIONS, AND MEDICATIONS GIVEN TO THE PATIENT. ALL PERSONAL ITEMS TAKEN WITH THE PATIENT AND HER SISTER.
--- NOTE | 2019-07-02 07:59 | Discharge Summary ---
FINAL DIAGNOSES: 1. Severe migraine headache associated with hypertensive urgency. 2. Baseline hypertension. 3. Atrial fibrillation, anticoagulant on therapy. HOSPITAL COURSE: A 69-year-old female with multiple cardiac arrhythmia problem. The patient baseline with atrial fibrillation, on anticoagulant therapy. She is also allergic to codeine and acetaminophen, came in with what happened to be a severe migraine headache. Workup with an imaging, MRI, CT scan, and echocardiogram are otherwise unremarkable. No acute finding. The patient was given migraine headache cocktail by Dr. Shannan López. The patient did receive IV Solu-Medrol. The patient is doing much better now. Her headache has now resolved. The patient will go home today. She will resume all home medication. She will take nortriptyline 25 mg at bedtime for prophylaxis. Celebrex 100 mg twice a day for headaches. The patient is otherwise stable. She will go home today. Follow up with Dr. López within a week. MD MARTHA Chakraborty/GREGORY /[id number]
== END 2019-07-01 12:17 | disposition home or self-care (01) | DRG 305 ==
LOC: ER 19:48 → ERHOLD 06-28 00:02 → MED/SURG3 06-28 01:07 → OBSVTOIN 06-29 10:23
PROVIDERS: ADMIT Internal Medicine; ATTEND Internal Medicine
DX: I16.0 Hypertensive urgency (principal); G43.829 Menstrual migraine, not intractable, without status migrainosus; I48.2 Chronic atrial fibrillation; Z79.01 Long term (current) use of anticoagulants; E03.9 Hypothyroidism, unspecified; Z79.899 Other long term (current) drug therapy
CPT/HCPCS: 36415; 70450; 70547; 70551; 71046; 80053; 82550; 82553; 83735; 84484; 85025; 85610; 85730; 93005; 99284; G0378; J0360; J1885; J2060; J2270; J2405; J2550; J2765; J2930; J7030; J7040; J7050

== ENCOUNTER 2020-02-16 12:13 | Inpatient (IN) | payer OTHER ==
[~2020-02-16] VITALS: Ht 157.5 cm; Wt 95.9 kg
[~2020-02-16 12:13] MED LIST changes: +CELEBREX100 MG PO; +HYDRALAZINE HCL50 MG; +NEXIUM40 MG; +NORTRIPTYLINE H25 MG PO
--- OUTSIDE RECORDS SUMMARY | 2020-02-16 12:16 | XMS REPORT | Clinical Summary ---
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
--- OUTSIDE RECORDS SUMMARY | 2020-02-16 12:16 | XMS REPORT ---
Author Author [facility] t Organization [facility] Address [address] [place] [address] Phone Unavailable Care Team Providers Care Certified Massage Therapist Name Role Phone ARLEEN RUGGIERO DO PCP GENEVIEVE CANO Attphyyenny Unavailable GENEVIEVE CANO Admloc Unavailable Payers Payer Name Policy Type Policy Number Effective Date Expiration Date Yenny Galvan [id number] 2018 00:00:00 [facility] Problems Condition Name Condition Details Condition Category Status Onset Date Resolution Date Last Treatment Date Treating Clinician Comments Source Atrial fibrillation Atrial fibrillation Problem Active 2015-11-09 00:00 :00 [facility] Chest pain Chest pain Problem Active 2015-11-09 00:00:00 [facility] Hypertensive urgency Hypertensive urgency Problem Active 00:00:00 [facility] Chronic atrial fibrillation Chronic a-fib Problem Active [facility] Intractable headache Intractable headache Problem Active [facility] Allergies, Adverse Reactions, Alerts Allergy Name Allergy Type Status Severity Reaction(s) Onset Date Inacti ve Date Treating Clinician Comments Source Codeine Allergy to Substance Active Unknown 2019-06-27 00:00:00 [facility] Acetaminophen Allergy to Substance Active Unknown 2019-06-27 00:00 :00 [facility] Social History Social Habit Start Date Stop Date Quantity Comments Source Sex Assigned At [facility] or[facility] Alevism Medications Ordered Medication Name Filled Medication Name Start Date Stop Da te Current Medication? Ordering Clinician Indication Dosage Frequency Signature (SIG) Comments Components Source Calcium Carbonate 500 Mg Tablet Calcium Carbonate 500 Mg Tablet Yes 1250 Daily [facility] Celecoxib (Celebrex*) 100 Mg Capsule Celecoxib (Celebrex*) 100 Mg C apsule Yes 100 Twice A Day as needed for Headache [facility] Cholecalciferol (Vitamin D3) (Vitamin D) 1,000 Unit [place]let Cholecalciferol (Vitamin D3) (Vitamin D) 1,000 Unit Tablet Yes 2000 Daily [facility] Clonazepam 0.5 Mg Tablet Clonazepam 0.5 Mg Tablet Yes .5 Daily [facility] Cyanocobalamin (Vitamin B-12) 1,000 Mcg Tab Cyanocobal kidd (Vitamin B-12) 1,000 Mcg Tab Yes 100 Daily [facility] Esomeprazole Magnesium (Nexium) 40 Mg Capsule.dr Jennings prazole Magnesium (Nexium) 40 Mg Capsule. Yes 40 Daily [facility] Hydralazine Hcl 50 Mg Tablet Hydralazine Hcl 50 Mg Tablet Y es 100 Twice A Day [facility] Levothyroxine Sodium 50 Mcg Tablet Levothyroxine Sodium 50 Mcg Tablet Yes 25 Daily [facility] Metoprolol Tartrate 50 Mg Tablet Metoprolol Tartrate 50 Mg Tablet Yes 50 Twice A Day [facility] Nortriptyline Hcl 25 Mg Capsule Nortriptyline Hcl 25 Mg Capsule Yes 25 Bedtime [facility] Rivaroxaban (Xarelto) 10 Mg Tablet Rivaroxaban (Xarelto) 10 Mg Tablet Yes 20 Daily [facility] Tramadol Hcl (Ultram 50MG*) 50 Mg Tab Tramadol Hcl (Ultram 50MG*) 5 0 Mg Tab Yes 50 Every 6 Hours as needed for Prn [facility] Amlodipine Besylate 5 Mg Tablet, 5 Mg Oral Amlodipine Besylate 5 Mg Tablet, 5 Mg Oral 2019-06-27 00:00:00 No 5 Daily [facility] Valsartan (Diovan) 160 Mg Tab, 160 Mg Oral Valsartan ( Diovan) 160 Mg Tab, 160 Mg Oral 2019-06-27 00:00:00 No 160 Twice A Day [facility] Procedures Procedure Date / Time Performed Performing Clinician Sony roger Magnetic resonance imaging of brain without contrast 2019-06 00:00:00 [facility] Magnetic resonance angiography of neck without contrast 2018 00:00:[address] [facility] X-ray of chest, two views 2019-06-27 00:00:00 HELENE MENDOZA CH I [facility] Computed tomography of brain without radiopaque contrast 201 06-14-22 00:00:00 TITUS WEAVER [facility] Plan of Care Planned Activity Planned Date Details Comments Source Future Scheduled Test [code = ] Future Scheduled Test [code = ] Future Scheduled Test [code = ] Future Scheduled Test [code = ] Future Scheduled Test [code = ] Encounters Start Date/Time End Date/Time Encounter Type Admission Type [facility] Care Department Encounter ID Source 2019-06-29 10:23:00 2019-07-01 12:17:00 Discharged Inpatient [address] [facility] [id number] [facility] Results Test Description Test Time Test Comments Results Result Comments Source Creatine Kinase MB 2019-06-30 09:29:00 Test Item Creatine Kinase MB (test code = 41511-2) 1.90 0-5.0 [facility] [id number] 09:29:00* Test Item Value Reference Range Interpretation Comments Troponin I (test code = DKQ9189) 0.008 0-0.300 [facility] CenterCreatine Xcdegv0025-67-65 09:22:00* Test Item Value Reference Range Interpretation Comments Creatine Kinase (test code = 2157-6) 33 33-451 [facility] Center[facility] NECK [id number] 14:05:00 [facility] [address] [address] Patient Name: OLIVE DELAROSA MR #: [id number] : 1950 Age/Sex: 69/F Req #: [id number] Adm Physician: GENEVIEVE CANO MD Ordered by: GENEVIEVE CANO MD Report #: [id number] Location: MED/SURG3 Room/Bed: [facility] Procedure: [id number] MRI/MRA NECK WO Exam Date: Exam Time: REPORT STATUS: Signed History: Headache and nausea Comparison studies: None. Technique: Axial 2-D tkxg-bz-mfnkwa cervical with 3-D MIP reformats. Contrast: None If present, stenosis is calculated utilizing the NASCET method which calculates the degree of stenosis with ref erence to the normal lumen of the carotid artery distal to the stenosis. Findings: Exam is moderately limited by artifacts related to patient motio n. Aortic arch: Obscured by artifacts. Common carotid arteries: Pat ent, no flow limiting stenosis. Right carotid bulb: Patent, no (0%) sten osis by NASCET criteria. Left carotid bulb: Patent, no (0%) stenosis by NASCET criteria. Internal carotid arteries: Patent, no flow limiting maxi nosis. Vertebral arteries: Origins obscured by artifacts. Otherwise cervantes nt, no flow limiting stenosis. IMPRESSION: Exam limited by motion zahira facts. In spite of limitations: 1. Patent carotid and vertebral arteries w ithout flow limiting stenosis. 2. No (0%) stenosis at the carotid bulbs. Signed by: Dr. Arleen Fernando M.D. on 06/29/2019 2:09 PM Dictated By: LOBO FERNANDO MD 08 Transcribed By: ALISHA on 06/29/191408 COPY TO: GENEVIEVE CANO MD MRI BRAIN [id number] 13:52:[address] [address] Patient Name: OLIVE DELAROSA MR #: [id number] : 1950 Age/Sex: 69/F Req #: [id number] Adm Physician: GENEVIEVE CANO MD Ordered by: GENEVIEVE CANO MD Report #: [id number] Location: MED/SURG3 Room/Bed: [facility] Procedure: [id number] MRI/MRI BRAIN WO Exam Date: Exam Time: REPORT STATUS: Signed Exam: Brain MRI without IV c ontrast History: Headache and nausea Comparison studies: Head CT 9. Prior brain MRI of 11/10/2015 is unavailable on the PACS for comparison at [facility] time of dictation. Technique: Sagittal and axial T2 FS, axial DWI, axi al T2*GRE, axial T1 FLAIR and axial coronal T2 FLAIR. Intravenous contrast: None Findings: Several pulse sequences are limited by artifacts relate d to patient motion. Scalp: Normal in signal. No masses. Bone marrow: Nor mal in signal intensity. Brain sulci: Appropriate for age. Ventricles: No rmal in size. No hydrocephalus. Extra axial spaces: No mass, no fluid collecti on. Parenchyma: No mass, acute hemorrhage or acute ischemia. Scattered T2 FLAIR hyperintense foci in the supratentorial white matter are nonspecific but are most compatible with chronic microvascular ischemic changes. Supra sellar region: No abnormalities. Craniocervical junction: Patent foramen magnu m. No Chiari malformation. Vessels: Normal flow-voids in the arteries and sin uses. IMPRESSION: 1. No acute intracranial abnormalities. 2. Mild to moderate supratentorial chronic microvascular ischemic changes. Signed b y: Dr. Arleen Fernando M.D. on 06/29/2019 2:05 PM Dictated By: ARLEEN SALCEDO MD 04 Transcrib ed By: ALISHA on 06/29/191404 COPY TO: GENEVIEVE CANO MD White Blood [id number] 08:29:00* Test Item Value Reference Range Interpretation Comments White Blood Count (test code = 6690-2) 8.37 4.8-10.8 [facility] Blood Yolqr4842-09-14 08:29:00* Test Item Value Reference Range Interpretation Comments Red Blood Count (test code = 789-8) 4.76 3.6-5.1 [facility] CenterHemoglobin2019-09-23 08:29:00* Test Item Value Reference Range Interpretation Comments Hemoglobin (test code = 19071-5) 14.4 12.0-16.0 [facility] CenterHematocrit2019-09-23 08:29:00* Test Item Value Reference Range Interpretation Comments Hematocrit (test code = 4544-3) 44.5 34.2-44.1 [facility] CenterMean Corpuscular Neujsh7223-15-36 08:29:00* Test Item Value Reference Range Interpretation Comments Mean Corpuscular Volume (test code = 787-2) 93.5 81-99 [facility] CenterMean Corpuscular Plifimzkuo5053-74-59 08:29:00* Test Item Value Reference Range Interpretation Comments Mean Corpuscular Hemoglobin (test code = 785-6) 30.3 28-32 [facility] Corp[facility] Hemoglobin Concent 2019-06-28 08:29:00* Test Item Value Reference Range Interpretation Comments Mean Corpuscular Hemoglobin Concent (test code = 786-4) 32.4 31-35 [facility] CenterRed Cell Distribution Geofs2174-96-78 08:29:00* Test Item Value Reference Range Interpretation Comments Red Cell Distribution Width (test code = 24017-3) 13.5 11.7 -14.4 [facility] CenterPlatelet Qjlbq0915-24-49 08:29:00* Test Item Value Reference Range Interpretation Comments Platelet Count (test code = 777-3) 231 140-360 [facility] CenterNeutrophils (%) (Auto)2019-06-28 08:29:00 * Test Item Value Reference Range Interpretation Comments Neutrophils (%) (Auto) (test code = 52327-2) 67.6 38.7-80.0 [facility] CenterLymphocytes (%) (Auto)2019-06-28 08:29:00 * Test Item Value Reference Range Interpretation Comments Lymphocytes (%) (Auto) (test code = 736-9) 23.8 18.0-39.1 [facility] CenterMonocytes (%) (Auto)2019-06-28 08:29:00* Test Item Value Reference Range Interpretation Comments Monocytes (%) (Auto) (test code = 5905-5) 7.6 4.4-11.3 [facility] CenterEosinophils (%) (Auto)2019-06-28 08:29:00 * Test Item Value Reference Range Interpretation Comments Eosinophils (%) (Auto) (test code = 713-8) 0.4 0.0-6.0 [facility] CenterBasophils (%) (Auto)2019-06-28 08:29:00* Test Item Value Reference Range Interpretation Comments Basophils (%) (Auto) (test code = 706-2) 0.2 0.0-1.0 [facility] CenterIM GRANULOCYTES %2019-06-28 08:29:00* Test Item Value Reference Range Interpretation Comments IM GRANULOCYTES % (test code = IM GRANULOCYTES %) 0.4 0.0- 1.0 [facility] CenterNeutrophils # (Auto)2019-06-28 08:29:00* Test Item Value Reference Range Interpretation Comments Neutrophils # (Auto) (test code = 751-8) 5.7 2.1-6.9 [facility] CenterLymphocytes # (Auto)2019-06-28 08:29:00* Test Item Value Reference Range Interpretation Comments Lymphocytes # (Auto) (test code = 86174-4) 2.0 1.0-3.2 [facility] CenterMonocytes # (Auto)2019-06-28 08:29:00* Test Item Value Reference Range Interpretation Comments Monocytes # (Auto) (test code = 742-7) 0.6 0.2-0.8 [facility] CenterEosinophils # (Auto)2019-06-28 08:29:00* Test Item Value Reference Range Interpretation Comments Eosinophils # (Auto) (test code = 711-2) 0.0 0.0-0.4 [facility] CenterBasophils # (Auto)2019-06-28 08:29:00* Test Item Value Reference Range Interpretation Comments Basophils # (Auto) (test code = 704-7) 0.0 0.0-0.1 [facility] CenterAbsolute Immature Granulocyte (auto 2019-06-28 08:29:00* Test Item Value Reference Range Interpretation Comments Absolute Immature Granulocyte (auto (blaze t code = Absolute Immature Granulocyte (auto) 0.03 0-0.1 [facility] Wxrmf7646-16-01 08:13:00* Test Item Value Reference Range Interpretation Comments Sodium Level (test code = 2951-2) 135 136-145 [facility] CenterPotassium Kdbmp9744-91-83 08:13:00* Test Item Value Reference Range Interpretation Comments Potassium Level (test code = 2823-3) 4.1 3.5-5.1 [facility] CenterChloride Gjcvd2570-98-39 08:13:00* Test Item Value Reference Range Interpretation Comments Chloride Level (test code = 2075-0) 100 98-107 [facility] CenterCarbon Dioxide Rzgph7520-85-48 08:13:00* Test Item Value Reference Range Interpretation Comments Carbon Dioxide Level (test code = 2028-9) 28 22-29 [facility] CenterAnion Fwo8603-74-52 08:13:00* Test Item Value Reference Range Interpretation Comments Anion Gap (test code = 69088-3) 11.1 8-16 [facility] CenterBlood Urea Qlbdewvm3754-92-85 08:13:00* Test Item Value Reference Range Interpretation Comments Blood Urea Nitrogen (test code = 3094-0) 13 7-26 [facility] CenterCreatinine2019-09-23 08:13:00* Test Item Value Reference Range Interpretation Comments Creatinine (test code = 2160-0) 0.91 0.57-1.11 [facility] CenterBUN/Creatinine Wkddv3396-61-17 08:13:00* Test Item Value Reference Range Interpretation Comments BUN/Creatinine Ratio (test code = 3097-3) 14 6- [facility] CenterEstimat Glomerular Filtration Rate 2019-06-28 08:13:00* Test Item Value Reference Range Interpretation Comments Estimat Glomerular Filtration Rate (test code = 452039494) > 60 >60 Ranges were taken from the National Kidney Disease Education Program and the [facility] [employer] literature.Reference ranges:60 or greater: Lljyuk74-50 ( for 3 consecutive months): Chronic kidney disease 15 or less: Kidney failureDel Sol Medical CenterGlucose Alsnz6616-47-87 08:13:00* Test Item Value Reference Range Interpretation Comments Glucose Level (test code = AYH2303) 95 74-118 [facility] CenterCalcium Zyhct4206-19-38 08:13:00* Test Item Value Reference Range Interpretation Comments Calcium Level (test code = 30082-9) 8.9 8.4-10.2 [facility] CenterTotal Elmhqkevk5017-92-31 08:13:00* Test Item Value Reference Range Interpretation Comments Total Bilirubin (test code = 1975-2) 1.1 0.2-1.2 [facility] CenterAspartate Amino Transf (AST/SGOT) 2019-06-28 08:13:00* Test Item Value Reference Range Interpretation Comments Aspartate Amino Transf (AST/SGOT) (test code = Aspartate Amino Transf (AST/SGOT)) 73 5-34 [facility] CenterAlanine Aminotransferase (ALT/SGPT) 2019-06-28 08:13:00* Test Item Value Reference Range Interpretation Comments Alanine Aminotransferase (ALT/SGPT) (test code = 1742-6) 38 0-55 [facility] CenterTotal Qylogjj0257-78-10 08:13:00* Test Item Value Reference Range Interpretation Comments Total Protein (test code = 2885-2) 6.4 6.5-8.1 [facility] CenterAlbumin2019-09-23 08:13:00* Test Item Value Reference Range Interpretation Comments Albumin (test code = 1751-7) 3.0 3.5-5.0 [facility] CenterGlobulin2019-09-23 08:13:00* Test Item Value Reference Range Interpretation Comments Globulin (test code = 01471-0) 3.4 2.3-3.5 [facility] CenterAlbumin/Globulin Pzqqj7423-82-27 08:13:00 * Test Item Value Reference Range Interpretation Comments Albumin/Globulin Ratio (test code = 1759-0) 0.9 0.8-2.0 [facility] CenterAlkaline Wwdcuntljxk7414-96-21 08:13:00* Test Item Value Reference Range Interpretation Comments Alkaline Phosphatase (test code = 6768-6) 103 40-150 [facility] CenterDifferential Total Cells Counted 2019-06-27 22:58:00* Test Item Value Reference Range Interpretation Comments Differential Total Cells Counted (test code = Differen tial Total Cells Counted) 100 [facility] CenterNeutrophils % (Manual)2019-06-27 22:58:00 * Test Item Value Reference Range Interpretation Comments Neutrophils % (Manual) (test code = 26478-5) 75 40-74 [facility] CenterLymphocytes % (Manual)2019-06-27 22:58:00 * Test Item Value Reference Range Interpretation Comments Lymphocytes % (Manual) (test code = 737-7) 19 19-48 [facility] CenterMonocytes % (Manual)2019-06-27 22:58:00* Test Item Value Reference Range Interpretation Comments Monocytes % (Manual) (test code = 744-3) 4 3.4-9.0 [facility] CenterEosinophils % (Manual)2019-06-27 22:58:00 * Test Item Value Reference Range Interpretation Comments Eosinophils % (Manual) (test code = 714-6) 2 0-7 [facility] CenterPlatelet Jaoenoyp5666-01-95 22:58:00* Test Item Value Reference Range Interpretation Comments Platelet Estimate (test code = 24046-6) ADEQUATE [facility] CenterMagnesium Edulu1969-10-85 22:27:00* Test Item Value Reference Range Interpretation Comments Magnesium Level (test code = 45291-8) 1.8 1.3-2.1 [facility] CenterProthrombin Fian4990-88-27 21:54:00* Test Item Value Reference Range Interpretation Comments Prothrombin Time (test code = 5902-2) 15.7 11.9-14.5 [facility] CenterProthromb Time International Ratio 2019-06-27 21:54:00* Test Item Value Reference Range Interpretation Comments Prothromb Time International Ratio (test code = 6301-6) 1.19 Oral Anticoagulant Therapy INR Values:1. Low Intensity Therapy 1.5 - 2.02 . Moderate Intensity Therapy 2.0 - 3.03. High Intensity Therapy(1) 2.5 - 3. 54. High Intensity Therapy(2) 3.0 - 4.05. Panic Value INR > 5.0 [facility] CenterActivated Partial Thromboplast Time 2019-06-27 21:54:00* Test Item Value Reference Range Interpretation Comments Activated Partial Thromboplast Time (test code = 99378-1) 33.9 23.8-35.5 [facility] CenterCHEST 2 YJBYI6238-83-37 21:33:00 [facility] [address] [address] Patient Name: OLIVE DELAROSA MR #: [id number] : 1950 Age/Sex: 69/F Req #: [id number] Adm Physician: Ordered by: HELENE MENDOZA MD Report #: [id number] Location: Room/Bed: Procedure: [id number] DX/C HEST 2 VIEWS Exam Date: 06/27/19 Exam Time: 2111 REPORT STATUS: Signed EXAMINATIO N: PA and lateral views of the chest. COMPARISON: Chest 2 views 11/08/2015 CLINICAL HISTORY: Chest pain for one week DISCUSSION: Lines/t ubes: None. Lungs: The lungs are well inflated and clear. There is no darnell dence of pneumonia or pulmonary edema. Pleura: There is no pleural effus ion or pneumothorax. Heart and mediastinum: Stable mild enlargement of the cardiac silhouette. Pulmonary vasculature is normal. Bones and soft tis sues: No acute bony abnormalities. Mild age-appropriate degenerative changes in the thoracic spine. IMPRESSION: Stable mild enlargement of the cardi ac silhouette, without acute cardiopulmonary abnormalities. S igned by: Dr. Kolby Nevarez M.D. on 06/27/2019 9:35 PM Dictated By: Tez NEVAREZ MD 34 Transcribed By: ALISHA on 06/27/192134 COPY TO: HELENE MENDOZA MD CT BRAIN BZ4470-29-09 21:14:00 [address] [address] Patient Name: OLIVE DELAROSA MR #: [id number] : 1950 Age/Sex: 69/F Req #: [id number] Adm Physician: Ordered by: TITUS WEAVER MD Report #: [id number] Location: Room/Bed: Procedure: CT/CT BRAIN WO Exam Date: Exam Time: REPORT STATUS: Signed History: Headaches Comparison studies: None Technique: Axial images were obtained from the skull base to the vertex. Coronal and sagittal reconstructions obtained from the axial data. Dose modulation, iterative reconstruction, and/or weight based adjustment of the mA/kV was utilized to reduce the radiation dose to as low as reasonably achievable. Intravenous contrast: None Findings: Scalp/skull: No abnormalities. No fractures, blastic or lytic lesions. Extra-axial spaces: No masses. No fluid collections. Brain sulci: Appropriate for age. Ventricles: Normal in size and configuration. No hydro cephalus. Parenchyma: No abnormal densities. No masses, hemorrhage, a cute or chronic cortical vascular insults. Sellar/suprasellar region: No ab normalities Craniocervical junction: Patent foramen magnum. No Chiari one mal formation. Incidental findings: None. IMPRESSION: No abnormalit ies. Signed by: Dr. Rafat Stark M.D. on 06/27/2019 9:16 PM Di ctated By: RAFAT STARK MD, MD 15 Transcribed By: ALISHA on 06/27/192115 [employer]PER[employer]OR [employer]STRUCTION Y TO: TITUS WEAVER MD SCR MAMM BILATERAL NAVIN CAD DIGITAL 2019-05-12 11:12:02 - SCR MAMM BILATERAL NAVIN CAD DIGITALBILATERAL DIGITAL SCREENING MAMMOGRAM 3D/2D WITH CAD: 05/11/2019CLINICAL: Asymptomatic. Digital breast tomosynthesis was performed in addition to routine CC and MLO views. Current mammographic images were evaluated by either a NuAx M-Vu or a eVestmenter CAD (computer aided detection system). Comparison is made to exams dated 08/08/2017 mammogram, 08/01/2016 mammogram, and 05/26/2015 mammogram - [facility]. The tissue of both breasts is predominantly fatty. There is a benign-appearing asymmetry in both breasts. No suspicious mass, architectural distortion, malignant type calcification, or lymph node abnormality detected. Breast architecture is stable compared to prior exams.IMPRESSION: BENIGNThere is no mammographic evidence of malignancy. Resume annual screening mammography in one year. Gerardo Mcallister M.D. rb/:05/12/2019 11:12:02 Accreditation Coordinator: Elidia Fuentes [place], [facility] sent: BIRADS 1-2 Normal Mammogram BI-RADS: 2 Benign
[2020-02-16] MEDS ORDERED: HYDRALAZINE HCL 20 MG/ML VIAL IV STA (12:41)
--- NOTE | 2020-02-16 13:16 | Diagnostic Imaging Report ---
EXAMINATION: CHEST SINGLE (PORTABLE) INDICATION: Chest pain COMPARISON: None FINDINGS: LINES/TUBES:None LUNGS:The lungs are well-inflated. No focal consolidation or pulmonary edema. PLEURA:No pleural effusion or pneumothorax. MEDIASTINUM:The cardiomediastinal silhouette appears normal in size and shape. BONES/SOFT TISSUES:No acute osseous injury. ABDOMEN:No free air under the diaphragm. IMPRESSION: No focal pneumonia or pulmonary edema. Signed by: Marzena Hinson MD on 02/16/2020 1:11 PM
--- NOTE | 2020-02-16 13:23 | Diagnostic Imaging Report ---
History:High blood pressure, headache Comparison studies:MRI of the brain 06/29/2019 Technique: Axial images were obtained from the skull base to the vertex. Coronal and sagittal images reconstructed from the axial data. Intravenous contrast: None Dose modulation, iterative reconstruction, and/or weight based adjustment of the mA/kV was utilized to reduce the radiation dose to as low as reasonably achievable. Findings: Scalp/skull: No abnormalities. Extra-axial spaces: No masses. No fluid collections. Brain sulci: Age-appropriate. Ventricles: Age-appropriate. No hydrocephalus. Parenchyma: Scattered small hypodensities in the supratentorial white matter are small vessel ischemic changes. No masses, hemorrhage, acute or chronic cortical vascular insults. Sellar/suprasellar region: No abnormalities. Craniocervical junction: Patent foramen magnum. No Chiari one malformation. Incidental findings: Atherosclerotic calcifications in the carotid siphons . Impression: No acute abnormalities. Chronic findings: . 1. Mild to moderate supratentorial white matter small vessel ischemic changes. Signed by: DR Rafa Adames M.D. on 02/16/2020 1:18 PM
[2020-02-16] MEDS ORDERED: ONDANSETRON HCL INJ 2MG/ML 2ML 2 MG/ML VIAL IV STA (13:31)
[2020-02-16 13:35] LABS: CLARITY,URINE CLEAR (CLEAR); COLOR,URINE YELLOW (YELLOW); LEUKOCYTE ESTERASE ,URINE LARGE (NEGATIVE); NITRITE,URINE NEGATIVE (NEGATIVE); PROTEIN,URINE DIPSTICK 2+ (NEGATIVE)
[2020-02-16 13:36] LABS: BILIRUBIN,URINE NEGATIVE (NEGATIVE); KETONES,URINE NEGATIVE (NEGATIVE); URINE UROBILINOGEN 0.2 mg/dL (0.2 - 1)
[2020-02-16] MEDS ORDERED: SODIUM CHLORIDE 0.9% 1000ML 1,000 ML ONE (13:39)
[2020-02-16] MEDS ORDERED: SODIUM CHLORIDE 0.9% 1000ML 1,000 ML IV ONE (13:45)
[2020-02-16 13:46] LABS: RBC,URINE 0-5 /HPF (0-5); WBC,URINE (MAN) 0-5 /HPF (0-5)
[2020-02-16 13:47] LABS: BACTERIA,URINE RARE /HPF; EPITHELIAL CELLS,URINE FEW /LPF
[2020-02-16 13:52] LABS: BASOPHILS % 0.4 % (0.0-1.0); EOSINOPHILS # (AUTO) 0.2 (0.0-0.4); EOSINOPHILS % 2.7 % (0.0-6.0); HEMATOCRIT 47.1 % (34.2-44.1); HEMOGLOBIN 15.5 g/dL (12.0-16.0); LYMPHOCYTES # (AUTO) 2.1 (1.0-3.2); LYMPHOCYTES % 25.8 % (18.0-39.1); MEAN CORPUSCULAR HEMOGLOBIN 29.4 pg (28-32); MEAN CORPUSCULAR HGB CONC 32.9 g/dL (31-35); MEAN CORPUSCULAR VOLUME 89.2 fL (81-99); MONOCYTES # (AUTO) 0.7 (0.2-0.8); MONOCYTES % 8.7 % (4.4-11.3); NEUTROPHILS # (AUTO) 5.1 (2.1-6.9); NEUTROPHILS % 62.2 % (38.7-80.0); PLATELET COUNT 275 x10e3/uL (140-360); RED BLOOD COUNT 5.28 x10e6/uL (3.6-5.1); RED CELL DISTRIBUTION WIDTH 13.9 % (11.7-14.4)
--- NOTE | 2020-02-16 13:58 | Emergency Department Note ---
History of Present Illnes History of Present Illness Chief Complaint: SOB History of Present Illness This is a 69 year old female . Historian: Patient Arrival Mode: Car Broom Bundler Required: No Onset (how long ago): day(s) (WORSE OVER PAST TWO DAYS) Severity: moderate Onset quality: gradual Timing of current episode: constant Progression: worsening Chronicity: chronic Relieving factors: none Exacerbating factors: movement Associated symptoms: shortness of breath, weakness Treatments prior to arrival: none (ELIGIO CARLOS NP) Past Medical/Family History Physician Review I have reviewed the patient's past medical and family history. Any updates have been documented here. (ELIGIO CARLOS NP) Past Medical History Recent Fever: No Clinical Suspicion of Infectio: No New/Unexplained Change in Ment: No Past Medical History: Hypertension, TIA, A-Fib, Hypothyroidism, ESRD, GERD, Ch ronic Back Pain, Osteoarthritis Other Medical History: "MINI STROKES." CHRONIC PAIN SYNDROME Past Surgical History: Hysterectomy (ELIGIO CARLOS NP) Social History Smoking Cessation: Never Smoker Alcohol Use: None Any Illegal Drug Use: No TB Exposure/Symptoms: No Physically hurt or threatened: No (ELIGIO CARLOS NP) Family History Family history of heart diseas: Yes (ELIGIO CARLOS NP) Other Last Tetanus: NA Any Pre-Existing Lines (PICC,: No Is patient up to date on immun: No (ELIGIO CARLOS NP) Review of Systems ROS Narrative PATIENT IN FROM HOME WITH COMPLAINTS OF HIGH BLOOD PRESSURE OFF AND ON X 1 WEEK; STATES SHE WENT TO SEE DR RENDON ON FRIDAY AND HE INCREASED HER BLOOD PRESSURE MEDICATION, BUT IT IS NOT HELPING. PATIENT WITH COMPLAINT SOF A HEADACHE, CHEST PAIN, AND NAUSEA. PATIENT VERY ANXIOUS IN TRIAGE, RATES PAIN 9/10. (ELIGIO CARLOS NP) Review of Systems Constitutional: weakness EENTM: no symptoms Cardiovascular: chest pain Respiratory: dyspnea on exertion Gastrointestinal: no symptoms Genitourinary: no symptoms Musculoskeletal: no symptoms Integumentary: no symptoms Neurological: headache Psychological: no symptoms Endocrine: no symptoms Hematological/Lymphatic: no symptoms Review of other systems All other systems reviewed and negative. (ELIGIO CARLOS NP) Physical Exam Related Data Allergies: Coded Allergies: acetaminophen (Verified Allergy, Unknown, 06/27/19) codeine (Verified Allergy, Unknown, 06/27/19) Triage Vital Signs Vital Signs Date Time Temp Pulse Resp B/P (MAP) Pulse Ox O2 Delivery O2 Flow Rate FiO2 02/16/20 12:26 96.0 85 20 201/122 96 Vital signs reviewed: Yes (ELIGIO CARLOS NP) Physical Exam CONSTITUTIONAL Constitutional: well-developed, well-nourished, obese HENT HENT: normocephalic, atraumatic EYES Eyes: PERRL, conjunctivae normal, EOM normal NECK Neck: ROM normal, supple PULMONARY Pulmonary: effort normal, breath sounds normal CARDIOVASCULAR Cardiovascular: regular rhythm, irregular rhythm GASTROINTESTINAL Abdominal: soft, nontender GENITOURINARY SKIN Skin: warm, dry MUSCULOSKELETAL Musculoskeletal: ROM normal NEUROLOGICAL Neurological: alert, oriented x 3 (patiet states she has had a FLOOD x 2 days) PSYCHOLOGICAL Psychiatric/behavioral: mood/affect normal (ELIGIO CARLOS NP) Results Laboratory Laboratory Laboratory Tests Test 02/16/20 13:30 02/16/20 12:30 Urine Color Yellow (YELLOW) Urine Clarity Clear (CLEAR) Urine pH 5.5 (5 - 7) Urine Specific [place] >=1.030 (1.010-1.025) Urine Protein 2+ (NEGATIVE) Urine Glucose (UA) Negative (NEGATIVE) Urine Ketones Negative (NEGATIVE) Urine Blood Negative (NEGATIVE) Urine Nitrite Negative (NEGATIVE) Urine Bilirubin Negative (NEGATIVE) Urine Urobilinogen 0.2 mg/dL (0.2 - 1) Urine Leukocyte Esterase Large (NEGATIVE) Urine RBC 0-5 /HPF (0-5) Urine WBC 0-5 /HPF (0-5) Urine Epithelial Cells Few /LPF (NONE) Urine Bacteria Rare /HPF (NONE) (ELIGIO CARLOS NP) Procedures 12 Lead ECG Interpretation Broom Bundler: Interpreted by ED physician (DR MENDOZA) Date: February 16, 2020 Time: 12:30 Prior BALLROOM DANCE INSTRUCTOR tracings: reviewed Rhythm: atrial fibrillation Rate: normal BMP: 86 Clinical Impression: abnormal ECG (ELIGIO CARLOS NP) Critical Care Time Subsequent provider I assumed direction of critical care for this patient from another provider of my specialty. (ELIGIO CARLOS NP) Assessment & Plan Assessment & Plan Problems: (1) Chest pain (2) Hypertensive urgency (3) Headache (4) Chronic a-fib (ELIGIO CARLOS NP) Reassessment Reassessment time: 14:07 Reassessment PATIENT PLACED IN ROOM AND MEDICATION ON BOARD. WHILE IN TRIAGE DR MENDOZA ALSO ASSESSED PATIENT 1500- ALL RESULTS BACK AND DISCUSSED WITH DR MENDOZA, SPOKE TO DR PALMER . ADMISSION ORDERS PLACED. PATIENT FEELING BETTER (ELIGIO CARLOS DIRECTOR OF BILLING) Depart Disposition: ADMITTED Last Vital Signs Date Time Temp Pulse Resp B/P (MAP) Pulse Ox O2 Delivery O2 Flow Rate FiO2 02/16/20 12:26 96.0 85 20 201/122 96 (ELIGIO CARLOS DIRECTOR OF BILLING) Home Meds Reported Medications Celecoxib* (CELEBREX*) 100 Mg Capsule, 100 MG PO BID PRN for HEADACHE, #30 CAP 07/01/19 Nortriptyline Hcl (NORTRIPTYLINE HCL) 25 Mg Capsule, 25 MG PO HS 07/01/19 Hydralazine Hcl (HYDRALAZINE HCL) 50 Mg Tablet, 100 MG BID 06/27/19 Esomeprazole Magnesium (NEXIUM) 40 Mg Capsule.dr, 40 MG DAILY 06/27/19 Clonazepam (CLONAZEPAM) 0.5 Mg Tablet, 0.5 MG PO DAILY, TAB 06/19/15 Cyanocobalamin (VITAMIN B-12) 1,000 Mcg Tab, 100 MCG PO DAILY, #30 TAB 06/19/15 Calcium Carbonate (CALCIUM CARBONATE) 500 Mg Tablet, 1250 MG PO DAILY, TAB 06/19/15 Cholecalciferol (Vitamin D3) (VITAMIN D) 1,000 Unit Tablet, 2000 UNIT PO DAILY, #30 TAB 06/19/15 Tramadol Hcl* (ULTRAM 50MG*) 50 Mg Tab, 50 MG PO Q6H PRN for prn, TAB 06/19/15 Levothyroxine Sodium (LEVOTHYROXINE SODIUM) 50 Mcg Tablet, 25 MCG PO DAILY, #30 TAB 06/19/15 Metoprolol Tartrate (METOPROLOL TARTRATE) 50 Mg Tablet, 50 MG PO BID, TAB 06/19/15 Rivaroxaban (XARELTO) 10 Mg Tablet, 20 MG PO DAILY 06/19/15 Medications in the ED Hydralazine HCl 10 mg NOW STAT IV ; Start 02/16/20 at 12:41; Stop 02/16/20 at 12:43; Status DC (ELIGIO CARLOS DIRECTOR OF BILLING) Attestation Provider Attestation Pt seen and examined with copy worker, pt presents for high BP, headache, CP Exam as follows - CV- IRIR with controlled rate, L- CTA bilat, Neuro exam non- focal, CN's intact I agree with copy worker assessment and disposition., Admit to Dr Palmer (HELENE MENDOZA MD) ELIGIO CARLOS NP February 16, 2020 13:30 HELENE MENDOZA MD February 16, 2020 15:17
[2020-02-16 14:07] LABS: INR 2.11; PROTHROMBIN TIME 25.2 seconds (11.9-14.5)
[2020-02-16 14:16] LABS: ALBUMIN 3.4 g/dL (3.5-5.0); ALBUMIN/GLOBULIN RATIO 0.8 (0.8-2.0); ANION GAP 16.1 mmol/L (8-16); CALCIUM 8.8 mg/dL (8.4-10.2); CREATININE, SERUM 0.93 mg/dL (0.57-1.11); MAGNESIUM 1.7 MG/DL (1.3-2.1); POTASSIUM 4.1 mmol/L (3.5-5.1)
[2020-02-16] MEDS ORDERED: MORPHINE SULFATE 2 MG/ML SYR 1ML IV STA (14:21)
[2020-02-16 14:22] LABS: CREATINE KINASE MB 0.8 ng/mL (0-5.0)
[2020-02-16] MEDS ORDERED: CEFTRIAXONE SOD 1 GM/NS 50 ML 50 ML IV ONE (14:30)
[2020-02-16] MEDS ORDERED: MORPHINE SULFATE 2 MG/ML SYR 1ML IV PRN (15:00)
--- OUTSIDE RECORDS SUMMARY | 2020-02-16 15:19 | XMS REPORT ---
Author Author [facility] t Organization [facility] Address [address] [place] [address] Phone Unavailable Care Team Providers Care Four Roll Calender Operator Name Role Phone BAHMANARLEEN PRECIADO DO PCP Nadir MENDOZA Attphys Unavailable GENEVIEVE CANO Attphys Unavailable RACHAEL, GENEVIEVE Admphyyenny Unavailable Payers Payer Name Policy Type Policy Number Effective Date Expiration Date Yenny Galvan [id number] 2018 00:00:00 [facility] Problems Condition Name Condition Details Condition Category Status Onset Date Resolution Date Last Treatment Date Treating Clinician Comments Source Atrial fibrillation Atrial fibrillation Problem Active 2015-11-09 00:00 :00 [facility] Chest pain Chest pain Problem Active 2015-11-09 00:00:00 [facility] Hypertensive urgency Hypertensive urgency Problem Active 00:00:00 [facility] Chronic atrial fibrillation Chronic a-fib Problem Active [facility] Intractable headache Intractable headache Problem Active [facility] Allergies, Adverse Reactions, Alerts Allergy Name Allergy Type Status Severity Reaction(s) Onset Date Inacti ve Date Treating Clinician Comments Source Codeine Allergy to Substance Active Unknown 2019-06-27 00:00:00 [facility] Acetaminophen Allergy to Substance Active Unknown 2019-06-27 00:00 :00 [facility] Social History Social Habit Start Date Stop Date Quantity Comments Source Sex Assigned At Pablo Howellist Medications Ordered Medication Name Filled Medication Name Start Date Stop Da te Current Medication? Ordering Clinician Indication Dosage Frequency Signature (SIG) Comments Components Source Calcium Carbonate 500 Mg Tablet Calcium Carbonate 500 Mg Tablet Yes 1250 Daily [facility] Celecoxib (Celebrex*) 100 Mg Capsule Celecoxib (Celebrex*) 100 Mg C apsule Yes 100 Twice A Day as needed for Headache [facility] Cholecalciferol (Vitamin D3) (Vitamin D) 1,000 Unit [place] blet Cholecalciferol (Vitamin D3) (Vitamin D) 1,000 Unit Tablet Yes 2000 Daily [facility] Clonazepam 0.5 Mg Tablet Clonazepam 0.5 Mg Tablet Yes .5 Daily [facility] Cyanocobalamin (Vitamin B-12) 1,000 Mcg Tab Cyanocobal kidd (Vitamin B-12) 1,000 Mcg Tab Yes 100 Daily [facility] Esomeprazole Magnesium (Nexium) 40 Mg Capsule.dr Jennings prazole Magnesium (Nexium) 40 Mg Capsule. Yes 40 Daily [facility] Hydralazine Hcl 50 Mg Tablet Hydralazine Hcl 50 Mg Tablet Y es 100 Twice A Day [facility] Levothyroxine Sodium 50 Mcg Tablet Levothyroxine Sodium 50 Mcg Tablet Yes 25 Daily [facility] Metoprolol Tartrate 50 Mg Tablet Metoprolol Tartrate 50 Mg Tablet Yes 50 Twice A Day [facility] Nortriptyline Hcl 25 Mg Capsule Nortriptyline Hcl 25 Mg Capsule Yes 25 Bedtime [facility] Rivaroxaban (Xarelto) 10 Mg Tablet Rivaroxaban (Xarelto) 10 Mg Tablet Yes 20 Daily [facility] Tramadol Hcl (Ultram 50MG*) 50 Mg Tab Tramadol Hcl (Ultram 50MG*) 5 0 Mg Tab Yes 50 Every 6 Hours as needed for Prn [facility] Amlodipine Besylate 5 Mg Tablet, 5 Mg Oral Amlodipine Besylate 5 Mg Tablet, 5 Mg Oral 2019-06-27 00:00:00 No 5 Daily [facility] Valsartan (Diovan) 160 Mg Tab, 160 Mg Oral Valsartan ( Diovan) 160 Mg Tab, 160 Mg Oral 2019-06-27 00:00:00 No 160 Twice A Day [facility] Procedures Procedure Date / Time Performed Performing Clinician [facility] e Magnetic resonance imaging of brain without contrast 2019-06 00:00:[address] [facility] Magnetic resonance angiography of neck without contrast 2018 00:00:[address] [facility] X-ray of chest, two views 2019-06-27 00:00:00 HELENE MENDOZA [facility] Computed tomography of brain without radiopaque contrast 201 06-14-22 00:00:00 TITUS WEAVER [facility] Plan of Care Planned Activity Planned Date Details Comments Source Future Scheduled Test [code = ] Future Scheduled Test [code = ] Future Scheduled Test [code = ] Future Scheduled Test [code = ] Future Scheduled Test [code = ] Encounters Start Date/Time End Date/Time Encounter Type Admission Type [facility] Care Department Encounter ID Source 2019-06-29 10:23:00 2019-07-01 12:17:00 Discharged Inpatient 1 GENEVIEVE CANO [facility] [id number] [facility] Results Test Description Test Time Test Comments Results Result Comments Source CT BRAIN WO 2020-02-16 13:16:00 [place] [address] Patient Name: OLIVE DELAROSA MR #: [id number] : 1950 Age/Sex: 69/F Req #: [id number] Adm Physician: Ordered by: HELENE MENDOZA MD Report #: [id number] Location: ER Room/Bed: Procedure: [id number] CT/CT BRAIN WO Exam Date: 02/16/20 Exam Time: 1350 REPORT STATUS: Signed History:High blood pressure, headache Comparison studies:MRI of the brain 06/29/2019 Technique: Axial images were obtained from the skull base to the vertex. Coronal and sagittal images reconstructed from the axial data. Intravenous contrast: None Dose modulatio n, iterative reconstruction, and/or weight based adjustment of the mA/kV was utilized to reduce the radiation dose to as low as reasonably achievable. Findings: Scalp/skull: No abnormalities. Extra-axial spaces: No masses. No fluid collections. Brain sulci: Age-appropriate. Ventricles: Age-appropriate. No hydrocephalus. Parenchyma: Scattered small hypodensities in the supratentorial white matter are small vessel ischemic changes. No masses, hemorrhage, acute or chronic cortical vascular insults. Sellar/suprasellar region: No abnormalities. Craniocervical junction: Patent foramen magnum. No Chiari one malformation. Incidental findings: Atherosclerotic calcifications in the carotid siphons . Impression: No acute abnormalities. Chronic findings: . 1. Mild to moderate supratentorial white matter small vessel ischemic changes. Signed by: DR Rafa Adames M.D. on 02/16/2020 1:18 PM Dictated By: RAFA ADAMES MD 17 Transcribed By: ALISHA on 02/16/201317 COPY TO: HELENE MENDOZA MD [facility] (PORTABLE) 2020-02-16 13:11:00 [place] [address] Patient Name: OLIVE DELAROSA MR #: [id number] : 1950 Age/Sex: 69/F Req #: [id number] Adm Physician: Ordered by: HELENE MENDOZA MD Report #: [id number] Location: ER Room/Bed: Procedure: [id number] DX/CHEST SINGLE (PORTABLE) Exam Date: Exam Time: REPORT STATUS: Signed EXAMINATION: CHEST SINGLE (PORTABLE) INDICATION: Chest pain COMPARISON: None FINDINGS: LINES/TUBES:None LUNGS:The lungs are well-inflated. No focal consolidation or pulmonary edema. PLEURA:No pleural effusion or pneumothorax. MEDIA STINUM:The cardiomediastinal silhouette appears normal in size and shape. BONES/SOFT TISSUES:No acute osseous injury. ABDOMEN:No free air under the diaphragm. IMPRESSION: No focal pneumonia or pulmonary edema. Signed by: Patricia Swanson MD on 02/16/2020 1:11 PM Dictated By: PATRICIA SWANSON MD 10 Transcribed By: ALISHA on 02/16/20 1311 COPY TO: HELENE MENDOZA MD Creatine Kinase MB 2019-06-30 09:29:00 Test Item Creatine Kinase MB (test code = 09078-6) 1.90 0-5.0 [facility]Troponin [id number] 09:29:00* Test Item Value Reference Range Interpretation Comments Troponin I (test code = MZV9011) 0.008 0-0.300 [facility] TexasCreatine Hecgky2525-26-14 09:22:00* Test Item Value Reference Range Interpretation Comments Creatine Kinase (test code = 2157-6) 33 29-168 [facility] TexasMRA NECK GI4791-74-04 14:05:00 [facility] [address] [address] Patient Name: OLIVE DELAROSA MR #: [id number] : 1950 Age/Sex: 69/F Req #: [id number] Adm Physician: GENEVIEVE CANO MD Ordered by: GENEVIEVE CANO MD Report #: [id number] Location: MED/SURG3 Room/Bed: [facility] Procedure: [id number] MRI/MRA NECK WO Exam Date: Exam Time: REPORT STATUS: Signed History: Headache and nausea Comparison studies: None. Technique: Axial 2-D vlca-vm-oeukmt cervical with 3-D MIP reformats. Contrast: None [...] COPY TO: GENEVIEVE CANO MD MRI BRAIN [id number] 13:52:00 [place] [address] Patient Name: OLIVE DELAROSA MR #: [id number] : 1950 Age/Sex: 69/F Req #: [id number] Adm Physician: GENEVIEVE CANO MD Ordered by: GENEVIEVE CANO MD Report #: [id number] Location: MED/SURG3 Room/Bed: [facility]-1 Procedure: [id number] MRI/MRI BRAIN WO Exam Date: Exam Time: REPORT STATUS: Signed Exam: Brain MRI without IV c ontrast History: Headache and nausea Comparison studies: Head CT 9. Prior brain MRI of 11/10/2015 is unavailable on the PACS for comparison at th e time of dictation. Technique: Sagittal and axial [...] COPY TO: GENEVIEVE CANO MD White Blood Xulcq4721-36-00 08:29:00* Test Item Value Reference Range Interpretation Comments White Blood Count (test code = 6690-2) 8.37 4.8-10.8 [facility] TexasRed Blood Gknyy2986-14-60 08:29:00* Test Item Value Reference Range Interpretation Comments Red Blood Count (test code = 789-8) 4.76 3.6-5.1 [facility] TexasHemoglobin2019-09-23 08:29:00* Test Item Value Reference Range Interpretation Comments Hemoglobin (test code = 36286-8) 14.4 12.0-16.0 [facility] TexasHematocrit2019-09-23 08:29:00* Test Item Value Reference Range Interpretation Comments Hematocrit (test code = 4544-3) 44.5 34.2-44.1 [facility] TexasMean Corpuscular Cfagjw7012-89-71 08:29:00* Test Item Value Reference Range Interpretation Comments Mean Corpuscular Volume (test code = 787-2) 93.5 81-99 [facility] TexasMean Corpuscular Mufjggxvua2855-36-69 08:29:00* Test Item Value Reference Range Interpretation Comments Mean Corpuscular Hemoglobin (test code = 785-6) 30.3 28-32 [facility] Corpuscular Hemoglobin Concent 2019-06-28 08:29:00* Test Item Value Reference Range Interpretation Comments Mean Corpuscular Hemoglobin Concent (test code = 786-4) 32.4 31-35 [facility] TexasRed Cell Distribution Tsavn4208-78-55 08:29:00* Test Item Value Reference Range Interpretation Comments Red Cell Distribution Width (test code = 80039-4) 13.5 11.7 -14.4 [facility] TexasPlatelet Chmhe5394-44-33 08:29:00* Test Item Value Reference Range Interpretation Comments Platelet Count (test code = 777-3) 231 140-360 [facility] TexasNeutrophils (%) (Auto)2019-06-28 08:29:00 * Test Item Value Reference Range Interpretation Comments Neutrophils (%) (Auto) (test code = 85949-5) 67.6 38.7-80.0 [facility] TexasLymphocytes (%) (Auto)2019-06-28 08:29:00 * Test Item Value Reference Range Interpretation Comments Lymphocytes (%) (Auto) (test code = 736-9) 23.8 18.0-39.1 [facility] TexasMonocytes (%) (Auto)2019-06-28 08:29:00* Test Item Value Reference Range Interpretation Comments Monocytes (%) (Auto) (test code = 5905-5) 7.6 4.4-11.3 [facility] TexasEosinophils (%) (Auto)2019-06-28 08:29:00 * Test Item Value Reference Range Interpretation Comments Eosinophils (%) (Auto) (test code = 713-8) 0.4 0.0-6.0 [facility] TexasBasophils (%) (Auto)2019-06-28 08:29:00* Test Item Value Reference Range Interpretation Comments Basophils (%) (Auto) (test code = 706-2) 0.2 0.0-1.0 [facility] TexasIM GRANULOCYTES %2019-06-28 08:29:00* Test Item Value Reference Range Interpretation Comments IM GRANULOCYTES % (test code = IM GRANULOCYTES %) 0.4 0.0- 1.0 [facility] TexasNeutrophils # (Auto)2019-06-28 08:29:00* Test Item Value Reference Range Interpretation Comments Neutrophils # (Auto) (test code = 751-8) 5.7 2.1-6.9 [facility] TexasLymphocytes # (Auto)2019-06-28 08:29:00* Test Item Value Reference Range Interpretation Comments Lymphocytes # (Auto) (test code = 72329-0) 2.0 1.0-3.2 [facility] TexasMonocytes # (Auto)2019-06-28 08:29:00* Test Item Value Reference Range Interpretation Comments Monocytes # (Auto) (test code = 742-7) 0.6 0.2-0.8 [facility] TexasEosinophils # (Auto)2019-06-28 08:29:00* Test Item Value Reference Range Interpretation Comments Eosinophils # (Auto) (test code = 711-2) 0.0 0.0-0.4 [facility] TexasBasophils # (Auto)2019-06-28 08:29:00* Test Item Value Reference Range Interpretation Comments Basophils # (Auto) (test code = 704-7) 0.0 0.0-0.1 [facility] TexasAbsolute Immature Granulocyte (auto 2019-06-28 08:29:00* Test Item Value Reference Range Interpretation Comments Absolute Immature Granulocyte (auto (blaze t code = Absolute Immature Granulocyte (auto) 0.03 0-0.1 [facility]odium Qonti6397-49-24 08:13:00* Test Item Value Reference Range Interpretation Comments Sodium Level (test code = 2951-2) 135 136-145 [facility] TexasPotassium Fhgpg4273-12-84 08:13:00* Test Item Value Reference Range Interpretation Comments Potassium Level (test code = 2823-3) 4.1 3.5-5.1 [facility] TexasChloride Yemfy8968-81-00 08:13:00* Test Item Value Reference Range Interpretation Comments Chloride Level (test code = 2075-0) 100 98-107 [facility] TexasCarbon Dioxide Osbup3576-61-86 08:13:00* Test Item Value Reference Range Interpretation Comments Carbon Dioxide Level (test code = 2028-9) 28 22-29 [facility] TexasAnion Fzm9431-43-54 08:13:00* Test Item Value Reference Range Interpretation Comments Anion Gap (test code = 92753-6) 11.1 8-16 [facility] TexasBlood Urea Koyqaxcw0060-82-54 08:13:00* Test Item Value Reference Range Interpretation Comments Blood Urea Nitrogen (test code = 3094-0) 13 7-26 [facility] TexasCreatinine2019-09-23 08:13:00* Test Item Value Reference Range Interpretation Comments Creatinine (test code = 2160-0) 0.91 0.57-1.11 [facility] TexasBUN/Creatinine Dcpbb0754-60-59 08:13:00* Test Item Value Reference Range Interpretation Comments BUN/Creatinine Ratio (test code = 3097-3) 14 6- [facility] TexasEstimat Glomerular Filtration Rate 2019-06-28 08:13:00* Test Item Value Reference Range Interpretation Comments Estimat Glomerular Filtration Rate (test code = 739889933) > 60 >60 Ranges were taken from the National Kidney Disease Education Program and the [facility] Kidney Foundation literature.Reference ranges:60 or greater: Culoxi84-44 ( for 3 consecutive months): Chronic kidney disease 15 or less: Kidney failureDell Seton Medical Center at The University of TexasGlucose Nwngr1903-16-79 08:13:00* Test Item Value Reference Range Interpretation Comments Glucose Level (test code = FBU1037) 95 74-118 [facility] TexasCalcium Heojo9306-60-96 08:13:00* Test Item Value Reference Range Interpretation Comments Calcium Level (test code = 79431-1) 8.9 8.4-10.2 [facility] TexasTotal Xhcfwmjxy9882-49-25 08:13:00* Test Item Value Reference Range Interpretation Comments Total Bilirubin (test code = 1975-2) 1.1 0.2-1.2 [facility] TexasAspartate Amino Transf (AST/SGOT) 2019-06-28 08:13:00* Test Item Value Reference Range Interpretation Comments Aspartate Amino Transf (AST/SGOT) (test code = Aspartate Amino Transf (AST/SGOT)) 73 5-34 [facility] TexasAlanine Aminotransferase (ALT/SGPT) 2019-06-28 08:13:00* Test Item Value Reference Range Interpretation Comments Alanine Aminotransferase (ALT/SGPT) (test code = 1742-6) 38 0-55 [facility] TexasTotal Cjiulji9235-63-20 08:13:00* Test Item Value Reference Range Interpretation Comments Total Protein (test code = 2885-2) 6.4 6.5-8.1 [facility] TexasAlbumin2019-09-23 08:13:00* Test Item Value Reference Range Interpretation Comments Albumin (test code = 1751-7) 3.0 3.5-5.0 [facility] TexasGlobulin2019-09-23 08:13:00* Test Item Value Reference Range Interpretation Comments Globulin (test code = 03362-9) 3.4 2.3-3.5 [facility] TexasAlbumin/Globulin Lbhtf0795-59-76 08:13:00 * Test Item Value Reference Range Interpretation Comments Albumin/Globulin Ratio (test code = 1759-0) 0.9 0.8-2.0 [facility] TexasAlkaline Ahkcafhtewp1304-74-97 08:13:00* Test Item Value Reference Range Interpretation Comments Alkaline Phosphatase (test code = 6768-6) 103 40-150 [facility] of TexasDifferential Total Cells Counted 2019-06-27 22:58:00* Test Item Value Reference Range Interpretation Comments Differential Total Cells Counted (test code = Differen tial Total Cells Counted) 100 [facility] TexasNeutrophils % (Manual)2019-06-27 22:58:00 * Test Item Value Reference Range Interpretation Comments Neutrophils % (Manual) (test code = 73846-8) 75 40-74 [facility] TexasLymphocytes % (Manual)2019-06-27 22:58:00 * Test Item Value Reference Range Interpretation Comments Lymphocytes % (Manual) (test code = 737-7) 19 19-48 [facility] TexasMonocytes % (Manual)2019-06-27 22:58:00* Test Item Value Reference Range Interpretation Comments Monocytes % (Manual) (test code = 744-3) 4 3.4-9.0 [facility] TexasEosinophils % (Manual)2019-06-27 22:58:00 * Test Item Value Reference Range Interpretation Comments Eosinophils % (Manual) (test code = 714-6) 2 0-7 [facility] TexasPlatelet Qvjwgxhi2146-87-54 22:58:00* Test Item Value Reference Range Interpretation Comments Platelet Estimate (test code = 81642-8) ADEQUATE [facility] TexasMagnesium Bmpnf1224-34-86 22:27:00* Test Item Value Reference Range Interpretation Comments Magnesium Level (test code = 84341-0) 1.8 1.3-2.1 [facility] TexasProthrombin Rkpa5675-93-67 21:54:00* Test Item Value Reference Range Interpretation Comments Prothrombin Time (test code = 5902-2) 15.7 11.9-14.5 [facility] TexasProthromb Time International Ratio 2019-06-27 21:54:00* Test Item Value Reference Range Interpretation Comments Prothromb Time International Ratio (test code = 6301-6) 1.19 Oral Anticoagulant Therapy INR Values:1. Low Intensity Therapy 1.5 - 2.02 . Moderate Intensity Therapy 2.0 - 3.03. High Intensity Therapy(1) 2.5 - 3. 54. High Intensity Therapy(2) 3.0 - 4.05. Panic Value INR > 5.0 [facility] TexasActivated Partial Thromboplast Time 2019-06-27 21:54:00* Test Item Value Reference Range Interpretation Comments Activated Partial Thromboplast Time (test code = 91696-1) 33.9 23.8-35.5 [facility] TexasCHEST 2 GMYZX7732-50-77 21:33:00 [place] [address] Patient Name: OLIVE DELAROSA MR #: [id number] : 1950 Age/Sex: 69/F Req #: [id number] Adm Physician: Ordered by: HELENE MENDOZA MD Report #: [id number] Location: ER Room/Bed: Procedure: DX/C HEST 2 VIEWS Exam Date: 06/27/19 [...] COPY TO: HELENE MENDOZA MD CT BRAIN [id number] 21:14:00 [place] [address] Patient Name: OLIVE DELAROSA MR #: [id number] : 1950 Age/Sex: 69/F Req #: [id number] Adm Physician: Ordered by: TITUS WEAVER MD Report #: [id number] Location: ER Room/Bed: Procedure: CT/CT BRAIN WO Exam Date: [...] MD 15 Transcribed By: ALISHA on 06/27/192115 DERMATOLOGIST AND DERMATOPATHOLOGIST Y TO: TITUS WEAVER MD SCR MAMM BILATERAL NAVIN CAD DIGITAL 2019-05-12 11:12:02 - SCR MAMM BILATERAL NAVIN CAD DIGITALBILATERAL DIGITAL SCREENING MAMMOGRAM 3D/2D WITH CAD: 05/11/2019CLINICAL: Asymptomatic. Digital breast tomosynthesis was performed in addition to routine CC and MLO views. Current mammographic images were evaluated by either a [employer] M-Vu or a [employer] ImageChecker CAD (computer aided detection system). Comparison is made to exams dated 08/08/2017 mammogram, 08/01/2016 mammogram, and 05/26/2015 mammogram - [facility]-. The tissue of both breasts is predominantly fatty. There is a benign-appearing asymmetry in both breasts. No suspicious mass, architectural distortion, malignant type calcification, or lymph node abnormality detected. Breast architecture is stable compared to prior exams.IMPRESSION: BENIGNThere is no mammographic evidence of malignancy. Resume annual screening mammography in one year. Gerardo Mcallister M.D. rb/:05/12/2019 11:12:02 Delivery Manager: Elidia CROOKS, [facility]-FWletter sent: BIRADS 1-2 Normal Mammogram BI-RADS: 2 Benign
--- OUTSIDE RECORDS SUMMARY | 2020-02-16 15:19 | XMS REPORT | Clinical Summary ---
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
[2020-02-16] MEDS: MORPHINE SULFATE INJ 4 MG/ML INJ 1ML IV PRN (20:15)
[2020-02-16] MEDS: ONDANSETRON HCL INJ 2MG/ML 2ML 2 MG/ML VIAL IV PRN (20:15)
[2020-02-17] MEDS: MORPHINE SULFATE INJ 4 MG/ML INJ 1ML IV PRN ×3 (04:17→14:57)
[2020-02-17] MEDS: SODIUM CHLORIDE 0.9% 1000ML 1,000 ML IV SCH ×2 (04:17→04:19)
[2020-02-17] MEDS: ONDANSETRON HCL INJ 2MG/ML 2ML 2 MG/ML VIAL IV PRN ×3 (04:17→14:57)
[2020-02-17] MEDS: HYDRALAZINE HCL 20 MG/ML VIAL IV PRN ×2 (06:12→12:36)
[2020-02-17 06:29] LABS: BASOPHILS % 0.3 % (0.0-1.0); EOSINOPHILS # (AUTO) 0.1 (0.0-0.4); EOSINOPHILS % 0.9 % (0.0-6.0); HEMATOCRIT 49.8 % (34.2-44.1); HEMOGLOBIN 15.6 g/dL (12.0-16.0); LYMPHOCYTES # (AUTO) 2.7 (1.0-3.2); LYMPHOCYTES % 27.3 % (18.0-39.1); MEAN CORPUSCULAR HEMOGLOBIN 28.8 pg (28-32); MEAN CORPUSCULAR HGB CONC 31.3 g/dL (31-35); MEAN CORPUSCULAR VOLUME 92.1 fL (81-99); MONOCYTES # (AUTO) 1.2 (0.2-0.8); MONOCYTES % 12.5 % (4.4-11.3); NEUTROPHILS # (AUTO) 5.8 (2.1-6.9); NEUTROPHILS % 58.6 % (38.7-80.0); PLATELET COUNT 235 x10e3/uL (140-360); RED BLOOD COUNT 5.41 x10e6/uL (3.6-5.1); RED CELL DISTRIBUTION WIDTH 14.2 % (11.7-14.4)
[2020-02-17 06:45] LABS: ANION GAP 16.7 mmol/L (8-16); BLOOD UREA NITROGEN 12 mg/dL (7-26); BUN/CREATININE RATIO 15 (6-25); CALCIUM 9.3 mg/dL (8.4-10.2); CARBON DIOXIDE 24 mmol/L (22-29); CHLORIDE 102 mmol/L (98-107); CREATININE, SERUM 0.82 mg/dL (0.57-1.11); EST GLOMERULAR FILTRATION RATE > 60 ML/MIN (60-); GLUCOSE 94 mg/dL (74-118); POTASSIUM 4.7 mmol/L (3.5-5.1); SODIUM 138 mmol/L (136-145)
--- NOTE | 2020-02-17 06:46 | Diagnostic Imaging Report ---
EXAMINATION: CHEST SINGLE (PORTABLE) INDICATION: Chest pain COMPARISON: None FINDINGS: AP view TUBES and LINES: None. LUNGS: Lungs are well inflated. Lungs are clear. There is no evidence of pneumonia or pulmonary edema. PLEURA: No pleural effusion or pneumothorax. HEART AND MEDIASTINUM: The cardiomediastinal silhouette is enlarged. BONES AND SOFT TISSUES: No acute osseous lesion. Soft tissues are unremarkable. UPPER ABDOMEN: No free air under the diaphragm. IMPRESSION: Cardiomegaly. No acute thoracic abnormality. Signed by: Christian Baptiste MD on 02/17/2020 6:42 AM
[2020-02-17 07:08] LABS: CREATINE KINASE MB 1.3 ng/mL (0-5.0)
[2020-02-17] MEDS ORDERED: METOPROLOL TARTRATE 50 MG TAB PO SCH (09:15)
[2020-02-17] MEDS ORDERED: CLONAZEPAM 0.5 MG TAB PO PRN (09:15)
[2020-02-17] MEDS: PANTOPRAZOLE SOD 40 MG TABEC PO SCH (12:36)
[2020-02-17] MEDS: RIVAROXABAN 20 MG TABLET PO SCH (12:36)
[2020-02-17] MEDS: TRAMADOL HCL 50 MG TAB PO PRN (12:37)
[2020-02-17 13:04] LABS: CREATINE KINASE MB 1.5 ng/mL (0-5.0)
[2020-02-17] MEDS: AMIODARONE HCL 200 MG TAB PO SCH (17:05)
[2020-02-17] MEDS: METOPROLOL TARTRATE 50 MG TAB PO SCH (17:05)
[2020-02-17] MEDS: HYDRALAZINE HCL 100 MG TABLET PO SCH (17:05)
--- NOTE | 2020-02-17 18:36 | Consultation ---
DATE OF CONSULTATION: Cardiology Consult HISTORY OF PRESENT ILLNESS: Anahi Fenton is a 69-year-old female with primary history of hypertension with previous multiple TIAs, chronic atrial fibrillation/atrial flutter (on Xarelto), hypothyroidism, anxiety, migraine headaches, admitted complaining of intermittently having chest pains she describes as pressure 10/10 radiating to her left arm and lasts for a few minutes accompanied with elevated blood pressure, headaches, nausea and vomiting, dizziness. The patient denies any shortness of breath. Onset of symptoms since Friday of last week and worsening of symptoms and BP elevation hence seeking ED admission. PAST MEDICAL HISTORY: Significant for previous cardiac caths done in 2014 with normal coronary arteries and normal LV size and function. PAST SURGICAL HISTORY: Cholecystectomy and hysterectomy. MEDICATIONS: Includes: 1. Synthroid. 2. Xarelto. 3. Metoprolol. 4. Hydralazine 50 mg tablet b.i.d. 5. Levothyroxine 50 mcg p.o. daily. 6. Metoprolol 50 mg p.o. b.i.d. 7. Xarelto 20 mg p.o. daily. 8. Clonazepam 0.5 mg tablet p.o. daily. 9. Celebrex 100 mg p.o. b.i.d. p.r.n. 10. Nortriptyline 25 mg p.o. at bedtime. 11. Tramadol 50 mg p.o. every 6 hours p.r.n. SOCIAL HISTORY: The patient does not drink or does not smoke. FAMILY HISTORY: There is no known family history of coronary artery disease. PHYSICAL EXAMINATION: CURRENT VITAL SIGNS: Blood pressure 156/105, heart rate of 90s to 110s, respiration is 20, pulse oximetry 97%. GENERAL: The patient is well developed, well nourished, in no acute distress. HEENT: Head; the patient's cranium was normocephalic and atraumatic. Sclerae anicteric. Pupils equally round, reactive to light and accommodation. There is no pallor or cyanosis of the oral mucosa. NECK: Supple. No jugular distention. No carotid bruit. CHEST: Diminished lower lobes. CARDIOVASCULAR: Irregular rate and rhythm. S1 and S2 is audible. No significant murmurs heard. ABDOMEN: Soft, nontender, nondistended. Bowel sounds are present. EXTREMITIES: No clubbing, cyanosis, or edema. NEUROLOGIC: Nonfocal. Motor strength of upper and lower are normal. Sensory exam is intact. LABORATORIES: BNP is 190.2. Troponin is 0.012 and 0.014, CK-MB 1.50, CK is 30. IMPRESSION AND PLAN: The patient is a 69-year-old admitted with hypertensive urgency and atrial fibrillation with RVR. Initial troponin and EKG are not ischemic. 1. Obtain echocardiogram to evaluate wall, valvular functions and LVEF. 2. Place on telemetry and monitor hemodynamics. Restart beta edith/antiarrhythmics for rate and rhythm control. Restart Xarelto. Control BP and add p.r.n. hydralazine. 3. We will arrange for nuclear stress testing to exclude ischemia. 4. Further recommendations will follow according to the patient's clinical course. Thank you for this consultation. Dictated by Sydney Lawrence NP MD VICKY Watts/[facility]REGORY /[id number]
--- NOTE | 2020-02-17 21:00 | NUR ---
PATIENT WAS BROUGHT FROM ER IN A STRETCHER.ADMISSION ASSESSMENT DONE.AAOX4.AMBULATES.TELE IN PLACE IV TO LEFT FOR ARM IS PATENT.ORIENTED TO THE UNIT.BED LOCKED AND IN LOWEST POSITION.PHONE AND CALL LIGHT WITHIN REACH.INSTRUCTED TO CALL FOR ASSISTANCE NEEDED.
[2020-02-17 21:15] VITALS: BP 179/108
[2020-02-17] MEDS: NORTRIPTYLINE HCL 25 MG CAP PO SCH (23:34)
[2020-02-18] VITALS (8 sets, daily range): BP systolic 92–175; BP diastolic 61–113
--- NOTE | 2020-02-18 00:30 | NUR ---
Consent signed .maintaining npo for stress test.stable condition.
[2020-02-18] MEDS: LEVOTHYROXINE SODIUM 25 MCG TABLET PO SCH (05:58)
--- NOTE | 2020-02-18 06:01 | NUR ---
CAKE STRIPPER MONITERED HR RUNNING 14O'S.UPON ASSESSMENT HR NOTED 79.KEEP MONITOR THE PATIENT.
--- NOTE | 2020-02-18 07:06 | NUR ---
BED SIDE SHIFT REPORT GIVEN TO ONCOMING RN.STABLE CONDITION.
[2020-02-18] MEDS: METOPROLOL TARTRATE 50 MG TAB PO SCH ×2 (07:28→16:58)
[2020-02-18] MEDS: HYDRALAZINE HCL 100 MG TABLET PO SCH ×2 (07:58→16:57)
[2020-02-18] MEDS: TRIAMTERENE/HCTZ 37.5-25 MG TAB PO SCH (07:58)
[2020-02-18] MEDS: AMIODARONE HCL 200 MG TAB PO SCH (07:58)
[2020-02-18] MEDS: LOSARTAN POTASSIUM 100 MG TAB PO SCH (07:58)
[2020-02-18] MEDS: RIVAROXABAN 20 MG TABLET PO SCH (07:59)
[2020-02-18] MEDS: PANTOPRAZOLE SOD 40 MG TABEC PO SCH (07:59)
[2020-02-18] MEDS: TRAMADOL HCL 50 MG TAB PO PRN ×2 (08:02→15:00)
[2020-02-18] MEDS ORDERED: REGADENOSON 0.4 MG/5 ML SYR IV ONE (08:20)
--- NOTE | 2020-02-18 09:30 | NUR ---
notified from telemetry that patient's heart rate as high as 170's. heart rate returns to the 120's quickly. Dr. Hugo paged. waiting for response.
--- NOTE | 2020-02-18 10:00 | NUR ---
patient leaving floor for stress test. Nuc [employer] tech aware of patient's heart rate.
[2020-02-18] MEDS ORDERED: ACETAMIN/BUTALBITAL/CAFFEINE TAB PO PRN (10:45)
[2020-02-18] MEDS: MORPHINE SULFATE INJ 4 MG/ML INJ 1ML IV PRN (13:19)
[2020-02-18] MEDS: HYDRALAZINE HCL 20 MG/ML VIAL IV PRN (13:19)
--- NOTE | 2020-02-18 14:30 | NUR ---
notified by instructor adjunct surgical technician of patient's heart rate reaching 170's. patient ambulating at the time. when at rest, heart rate in 120's. Dr. sharpe paged.
--- NOTE | 2020-02-18 14:50 | NUR ---
Orders for 5mg of cardiziem received and given. heart rate at rest 98 after. wctm.
[2020-02-18] MEDS: DILTIAZEM HCL 5 MG/ML 5 ML VIAL IV STA ×2 (15:00→16:19)
--- NOTE | 2020-02-18 15:40 | NUR ---
pt ambulated to restroom with assistance. HR went to 185. assisted back to bed and Dr. Bethel cartagena.
[2020-02-18] MEDS ORDERED: AMIODARONE HCL 150MG 100 ML IV ONE (16:30)
[2020-02-18] MEDS ORDERED: AMIODARONE HCL 900 MG in DEXTROSE 5% 500ML 500 ML IV SCH (16:45)
--- NOTE | 2020-02-18 16:45 | NUR ---
orders from Dr. Hugo entered. [facility] notified of need of transfer for drip.
--- NOTE | 2020-02-18 18:05 | NUR ---
Patient transferred to room 198 for drip. hand off complete.
--- NOTE | 2020-02-18 18:54 | Operative Report ---
DATE OF PROCEDURE: 02/18/2020 SURGEON: Arash Hugo MD INDICATIONS: Lexiscan nuclear stress test. INDICATIONS: Shortness of breath. TECHNIQUE: The patient was given 11 millicuries of Myoview. Resting images were obtained in the horizontal long axis, vertical long axis, and short axis. The patient was then hooked up to the EKG machine. Lexiscan was infused over 15 seconds. Immediately after Lexiscan infusion, the patient was given 33 mCi of Myoview. Stress images were obtained 30 minutes after completion of exercise. Stress images were obtained in the horizontal long axis and vertical long axis and short axis. RESULTS: 1. The resting EKG demonstrated atrial fibrillation. 2. There were no EKG changes and no symptoms during Lexiscan infusion. 3. There was normal perfusion to all segments of the myocardium in both stress and rest. 4. There was normal left ventricular size and function with an ejection fraction of 70%. CONCLUSION: Normal Lexiscan nuclear stress test with no evidence of ischemia. Arash Hugo MD [facility] /[id number] cc: Jonn Palmer MD
[2020-02-18] MEDS: NORTRIPTYLINE HCL 25 MG CAP PO SCH (20:44)
--- NOTE | 2020-02-18 23:50 | Consultation ---
DATE OF CONSULTATION: 02/18/2020 REASON FOR CONSULT: Atrial fibrillation. HISTORY OF PRESENT ILLNESS: This is a 69-year-old woman with a history of atrial fibrillation diagnosed about 8-10 months ago. The patient states she has been on multiple medicines for rate control, but she feels very tired. She has been progressively getting more tired recently and also having problems with her blood pressure. She presented with hypertensive urgency, also she is having atrial fibrillation with rapid ventricular response. We were consulted to consider ablation procedure. The patient states she has been taking amiodarone in the past, but she stopped it and now she was resumed on amiodarone and the heart rate is better controlled. REVIEW OF SYSTEMS: CONSTITUTIONAL: Negative. CARDIOVASCULAR: As per HPI. RESPIRATORY: Negative. GASTROINTESTINAL: Negative. GENITOURINARY: Negative. MUSCULOSKELETAL: Negative. EYES: Negative. ENT: Negative. ALLERGY/IMMUNOLOGY: Negative. PSYCHIATRIC: Negative. PAST MEDICAL HISTORY: Atrial fibrillation and hypertension. PAST SURGICAL HISTORY: Denies. FAMILY HISTORY: No premature coronary artery disease. SOCIAL HISTORY: Denies smoking or alcohol. PHYSICAL EXAMINATION: VITAL SIGNS: Blood pressure 168/60, pulse 120, respiration 20, O2 sats 98%. GENERAL: No acute distress. HEENT: Moist mucous membranes. CARDIOVASCULAR: Irregular. Respiratory clear. ABDOMEN: Soft, nontender. MUSCULOSKELETAL: 2+ pulses. NEUROLOGICAL: No focal deficits. SKIN: No lesions. PSYCHIATRIC: Normal thought process. LABORATORY STUDIES: EKG, atrial fibrillation, rapid ventricular response. IMPRESSION: Persistent atrial fibrillation, highly symptomatic with fatigue, dizziness, palpitations refractory to medical therapy. RECOMMENDATIONS: I had a long discussion with the patient about the options, continuing antiarrhythmic therapy, which has failed thus far, versus ablation procedure, explained to her the details of the procedure success rates being lower whenever it is persistent, however, she will be a reasonable candidate to undergo the ablation. All questions were answered, she voices understanding and wishes to proceed. We will plan for ablation of atrial fibrillation as an outpatient. We will set up to be done at [facility], transesophageal echo to be arranged as an outpatient by Dr. Hugo, rahul Stout, do not hold the procedure. No need for CT scan. Thank you for letting us participate in [facility]. MD LAYNE Peralta/[place] /[id number]
[2020-02-19] VITALS (8 sets, daily range): BP systolic 81–144; BP diastolic 57–96
[2020-02-19] MEDS: LEVOTHYROXINE SODIUM 25 MCG TABLET PO SCH (06:00)
[2020-02-19] MEDS: LOSARTAN POTASSIUM 100 MG TAB PO SCH (10:26)
[2020-02-19] MEDS: HYDRALAZINE HCL 100 MG TABLET PO SCH ×2 (10:26→17:28)
[2020-02-19] MEDS: METOPROLOL TARTRATE 50 MG TAB PO SCH ×2 (10:27→17:28)
[2020-02-19] MEDS: PANTOPRAZOLE SOD 40 MG TABEC PO SCH (10:27)
[2020-02-19] MEDS: RIVAROXABAN 20 MG TABLET PO SCH (10:27)
[2020-02-19] MEDS: TRIAMTERENE/HCTZ 37.5-25 MG TAB PO SCH (10:27)
[2020-02-19] MEDS: AMIODARONE HCL 200 MG TAB PO SCH ×2 (13:39→15:01)
[2020-02-19] MEDS: TRAMADOL HCL 50 MG TAB PO PRN ×2 (15:01→21:03)
[2020-02-19] MEDS: NORTRIPTYLINE HCL 25 MG CAP PO SCH (20:57)
[2020-02-20] VITALS (9 sets, daily range): BP systolic 116–159; BP diastolic 77–126
[2020-02-20 05:14] LABS: BASOPHILS % 0.3 % (0.0-1.0); EOSINOPHILS # (AUTO) 0.4 (0.0-0.4); HEMATOCRIT 47.3 % (34.2-44.1); LYMPHOCYTES # (AUTO) 2.4 (1.0-3.2); MEAN CORPUSCULAR HGB CONC 31.7 g/dL (31-35); MEAN CORPUSCULAR VOLUME 91.3 fL (81-99); MONOCYTES # (AUTO) 1.3 (0.2-0.8); MONOCYTES % 12.9 % (4.4-11.3); NEUTROPHILS # (AUTO) 6.1 (2.1-6.9); NEUTROPHILS % 59.5 % (38.7-80.0); PLATELET COUNT 283 x10e3/uL (140-360); RED BLOOD COUNT 5.18 x10e6/uL (3.6-5.1); RED CELL DISTRIBUTION WIDTH 13.7 % (11.7-14.4)
[2020-02-20 05:42] LABS: ANION GAP 15.7 mmol/L (8-16); CALCIUM 9.4 mg/dL (8.4-10.2); CREATININE, SERUM 1.39 mg/dL (0.57-1.11); POTASSIUM 3.7 mmol/L (3.5-5.1)
[2020-02-20] MEDS: LEVOTHYROXINE SODIUM 25 MCG TABLET PO SCH (06:04)
[2020-02-20] MEDS: RIVAROXABAN 20 MG TABLET PO SCH (08:25)
[2020-02-20] MEDS: AMIODARONE HCL 200 MG TAB PO SCH ×2 (08:25→16:23)
[2020-02-20] MEDS: LOSARTAN POTASSIUM 100 MG TAB PO SCH (08:25)
[2020-02-20] MEDS: HYDRALAZINE HCL 100 MG TABLET PO SCH ×2 (08:25→16:23)
[2020-02-20] MEDS: TRIAMTERENE/HCTZ 37.5-25 MG TAB PO SCH (08:25)
[2020-02-20] MEDS: METOPROLOL TARTRATE 50 MG TAB PO SCH ×2 (08:25→16:23)
[2020-02-20] MEDS: PANTOPRAZOLE SOD 40 MG TABEC PO SCH (08:25)
[2020-02-20] MEDS ORDERED: BISACODYL 10 MG SUPP PR PRN (08:45)
[2020-02-20] MEDS ORDERED: BISACODYL 5 MG TAB EC PO NR (08:45)
[2020-02-20] MEDS ORDERED: BISACODYL 5 MG TAB EC PO PRN (08:45)
[2020-02-20] MEDS ORDERED: MAGNESIUM HYDROXIDE 30 ML UDC PO PRN (08:45)
[2020-02-20] MEDS ORDERED: BISACODYL 10 MG SUPP PR NR (08:45)
[2020-02-20] MEDS: SENNA-S TABLET PO SCH ×3 (09:00→16:23)
[2020-02-20] MEDS: NORTRIPTYLINE HCL 25 MG CAP PO SCH (20:30)
[2020-02-20] MEDS: TRAMADOL HCL 50 MG TAB PO PRN (20:38)
[2020-02-21] VITALS (11 sets, daily range): BP systolic 101–136; BP diastolic 75–108
[2020-02-21 05:23] LABS: BASOPHILS % 0.3 % (0.0-1.0); EOSINOPHILS # (AUTO) 0.3 (0.0-0.4); HEMATOCRIT 48.3 % (34.2-44.1); HEMOGLOBIN 15.6 g/dL (12.0-16.0); LYMPHOCYTES # (AUTO) 1.9 (1.0-3.2); LYMPHOCYTES % 20.6 % (18.0-39.1); MEAN CORPUSCULAR HEMOGLOBIN 28.8 pg (28-32); MEAN CORPUSCULAR HGB CONC 32.3 g/dL (31-35); MEAN CORPUSCULAR VOLUME 89.1 fL (81-99); MONOCYTES # (AUTO) 1.1 (0.2-0.8); MONOCYTES % 12.2 % (4.4-11.3); NEUTROPHILS # (AUTO) 5.9 (2.1-6.9); NEUTROPHILS % 63.5 % (38.7-80.0); PLATELET COUNT 300 x10e3/uL (140-360); RED BLOOD COUNT 5.42 x10e6/uL (3.6-5.1)
[2020-02-21 05:42] LABS: CALCIUM 9.8 mg/dL (8.4-10.2); CREATININE, SERUM 1.4 mg/dL (0.57-1.11)
[2020-02-21] MEDS: LEVOTHYROXINE SODIUM 25 MCG TABLET PO SCH (06:18)
--- NOTE | 2020-02-21 08:45 | NUR ---
Pt unavailable at this time. I will follow up as able. [facility] O: [phone]
[2020-02-21] MEDS: PANTOPRAZOLE SOD 40 MG TABEC PO SCH (09:28)
[2020-02-21] MEDS: TRIAMTERENE/HCTZ 37.5-25 MG TAB PO SCH (09:28)
[2020-02-21] MEDS: AMIODARONE HCL 200 MG TAB PO SCH ×2 (09:28→17:27)
[2020-02-21] MEDS: RIVAROXABAN 20 MG TABLET PO SCH (09:28)
[2020-02-21] MEDS: SENNA-S TABLET PO SCH ×3 (09:28→17:26)
[2020-02-21] MEDS: HYDRALAZINE HCL 100 MG TABLET PO SCH ×2 (09:29→17:27)
[2020-02-21] MEDS: METOPROLOL TARTRATE 50 MG TAB PO SCH ×2 (09:29→17:30)
[2020-02-21] MEDS: LOSARTAN POTASSIUM 100 MG TAB PO SCH (09:29)
[2020-02-21] MEDS ORDERED: ONDANSETRON HCL 4 MG ORAL DISINTEGRATING TAB PO PRN (11:00)
--- NOTE | 2020-02-21 11:52 | NUR ---
ORDER RECEIVED FOR TRANSFER TO [facility] FOR HIGHER LOC. PT WILL NEED OBI W ABLATION. CALL TO PT IN HER ROOM. PROVIDED CHOICE FOR HIGHER LOC. PT STATES HER WAS PRESENT AND HE COULD DRIVE HER OVER. EXPLAINED TO THE PT SINCE HER HR WAS UP IN THE 140'S W EXERTION THE DOC ORDERED SHE BE TRANSFERRED TO [facility]. PT VERBALIZED UNDERSTANDING. PT AGREED TO TRANSFER. MOT WAS INITIATED. CALL TO [facility] TRANSFER [facility]ENTER @ [phone]. SPOKE Logan MABRY. FAXED FS AND H&P TO [phone]. CM INFO GIVEN. WILL AWAIT CALL BACK.
--- NOTE | 2020-02-21 12:24 | NUR ---
CALL RECEIVED FROM [facility] TRANSFER [place]. STATES THE PT WAS ACCEPTED, BUT NO BED AVAILABLE CURRENTLY. STATES SHE WILL CALL BACK WHEN BED AVAILABLE.
--- NOTE | 2020-02-21 17:21 | NUR ---
NO CALL BACK. MOT GIVEN TO ALVARO CARMONA.Rosey HALE
[2020-02-21] MEDS: NORTRIPTYLINE HCL 25 MG CAP PO SCH (20:38)
[2020-02-21] MEDS: TRAMADOL HCL 50 MG TAB PO PRN (20:44)
--- NOTE | 2020-02-21 21:19 | NUR ---
[facility] ambulance is here to picker feeder patient to go to [facility]. patient is awake alert oriented, no distress noted, vitals checked. all belongings with her.
== END 2020-02-21 21:23 | disposition short-term general hospital (02) | DRG 308 ==
LOC: ER 12:13 → ERHOLD 14:55 → MED/SURG 02-17 21:16 → OBSVTOIN 02-18 14:51 → IMCU 02-18 18:10
PROVIDERS: ADMIT Internal Medicine; ATTEND Internal Medicine
DX: I48.19 Other persistent atrial fibrillation (principal); N18.6 End stage renal disease; I13.11 Hypertensive heart and chronic kidney disease without heart failure, with stage 5 chronic kidney disease, or end stage renal disease; R07.9 Chest pain, unspecified; I16.0 Hypertensive urgency; R51 Headache; Z86.73 Personal history of transient ischemic attack (TIA), and cerebral infarction without residual deficits; E03.9 Hypothyroidism, unspecified; Z99.2 Dependence on renal dialysis; M19.90 Unspecified osteoarthritis, unspecified site; G89.4 Chronic pain syndrome; Z79.01 Long term (current) use of anticoagulants
CPT/HCPCS: 36415; 70450; 71045; 78452; 80048; 80053; 81001; 82550; 82553; 82948; 83735; 83880; 84484; 85025; 85610; 85730; 87086; 87635; 93005; 93017; 93306; 93880; 96374; 96376; 99284; A9502; G0378; J0360; J0696; J2270; J2405; J7030; J7060

== ENCOUNTER 2022-02-27 06:43 | Inpatient (IN) | payer OTHER ==
[~2022-02-27] VITALS: Ht 160 cm; Wt 78.0 kg
[2022-02-27] VITALS (7 sets, daily range): BP systolic 120–178; BP diastolic 65–98
[2022-02-27] MEDS ORDERED: SODIUM CHLORIDE 0.9% 500ML 500 ML IV ONE (07:15)
[2022-02-27] MEDS ORDERED: LOSARTAN PO (07:21)
[2022-02-27] MEDS ORDERED: ATORVASTATIN CA20 MG PO (07:22)
[2022-02-27] MEDS ORDERED: CLONIDINE HCL0.1 MG PO (07:22)
[2022-02-27 07:27] LABS: BASOPHILS % 0.3 % (0.0-1.0); EOSINOPHILS # (AUTO) 0.2 (0.0-0.4); EOSINOPHILS % 1.8 % (0.0-6.0); HEMATOCRIT 43.6 % (34.2-44.1); LYMPHOCYTES # (AUTO) 3.7 (1.0-3.2); LYMPHOCYTES % 31.7 % (18.0-39.1); MEAN CORPUSCULAR HEMOGLOBIN 29.4 pg (28-32); MEAN CORPUSCULAR HGB CONC 32.1 g/dL (31-35); MEAN CORPUSCULAR VOLUME 91.6 fL (81-99); MONOCYTES # (AUTO) 0.7 (0.2-0.8); MONOCYTES % 6.1 % (4.4-11.3); NEUTROPHILS # (AUTO) 6.9 (2.1-6.9); NEUTROPHILS % 59.8 % (38.7-80.0); PLATELET COUNT 252 x10e3/uL (140-360); RED BLOOD COUNT 4.76 x10e6/uL (3.6-5.1); RED CELL DISTRIBUTION WIDTH 13.5 % (11.7-14.4)
[2022-02-27] MEDS ORDERED: VITAMIN C500 MG PO (07:28)
[2022-02-27] MEDS ORDERED: B COMPLEX1 EACH PO (07:28)
[2022-02-27] MEDS ORDERED: OMEGA-31000 MG PO (07:28)
[2022-02-27] MEDS ORDERED: GLUTATHIONE25 GM (07:28)
[2022-02-27] MEDS ORDERED: zinc PO (07:28)
[2022-02-27] MEDS ORDERED: ATP25 MG PO (07:29)
[2022-02-27 07:39] LABS: INR 1.29; PROTHROMBIN TIME 17.2 seconds (11.9-14.5)
[2022-02-27 07:40] LABS: PARTIAL THROMBOPLASTIN TIME 33.7 seconds (23.8-35.5)
[2022-02-27 07:49] LABS: ALANINE AMINOTRANSFERASE 102 IU/L (0-55); ALBUMIN 3.7 g/dL (3.5-5.0); ALKALINE PHOSPHATASE 126 IU/L (40-150); ANION GAP 14.7 mmol/L (8-16); BLOOD UREA NITROGEN 15 mg/dL (7-26); BUN/CREATININE RATIO 12 (6-25); CALCIUM 9.4 mg/dL (8.4-10.2); CARBON DIOXIDE 25 mmol/L (22-29); CHLORIDE 103 mmol/L (98-107); CREATINE KINASE 30 IU/L (29-168); CREATININE, SERUM 1.25 mg/dL (0.57-1.11); GLUCOSE 104 mg/dL (74-118); MAGNESIUM 1.7 MG/DL (1.3-2.1); POTASSIUM 3.7 mmol/L (3.5-5.1); SODIUM 139 mmol/L (136-145)
[2022-02-27 08:02] LABS: CLARITY,URINE CLEAR (CLEAR); COLOR,URINE YELLOW (YELLOW); KETONES,URINE NEGATIVE (NEGATIVE); LEUKOCYTE ESTERASE ,URINE NEGATIVE (NEGATIVE); NITRITE,URINE NEGATIVE (NEGATIVE); PROTEIN,URINE DIPSTICK NEGATIVE (NEGATIVE); URINE UROBILINOGEN 0.2 mg/dL (0.2 - 1)
[2022-02-27 08:12] LABS: BACTERIA,URINE MODERATE /HPF; EPITHELIAL CELLS,URINE FEW /LPF; RBC,URINE 0-5 /HPF (0-5)
[2022-02-27] MEDS: LOSARTAN POTASSIUM 100 MG TAB PO SCH ×2 (08:27→17:00)
[2022-02-27] MEDS ORDERED: SODIUM CHLORIDE 0.9% 1000ML 1,000 ML IV SCH ×2 (08:30→10:00)
[2022-02-27] MEDS ORDERED: LOSARTAN POTASSIUM 25 MG TAB ONE (08:38)
[2022-02-27] MEDS ORDERED: SODIUM CHLORIDE 0.9% 100 ML ONE (08:41)
[2022-02-27] MEDS ORDERED: IOPAMIDOL 370 MG/ML 100 ML INFUS..BTL INJ ONE (08:41)
[2022-02-27] MEDS ORDERED: HYDRALAZINE HCL 20 MG/ML VIAL IV PRN ×2 (10:45→17:30)
[2022-02-27] MEDS: Morphine 2mg Syringe 2 MG/ML SYR IV PRN ×2 (12:44→17:09)
[2022-02-27] MEDS: ONDANSETRON HCL INJ 2MG/ML 2ML 2 MG/ML VIAL IV PRN ×3 (12:44→21:59)
[2022-02-27 16:05] LABS: CREATINE KINASE 26 IU/L (29-168)
[2022-02-27] MEDS: DEXTROSE 5%/0.9% SOD CHL 1,000 ML IV SCH (18:00)
[2022-02-27] MEDS: TRAMADOL HCL 50 MG TAB PO PRN (21:58)
[2022-02-27] MEDS: METOPROLOL TARTRATE 25 MG TAB PO SCH (22:30)
[2022-02-27] MEDS ORDERED: AMLODIPINE BESYLATE 5 MG TAB PO ONE (22:30)
[2022-02-28] VITALS (9 sets, daily range): BP systolic 113–157; BP diastolic 62–82
[2022-02-28] MEDS ORDERED: ONDANSETRON HCL INJ 2MG/ML 2ML 2 MG/ML VIAL IV STA (00:11)
[2022-02-28] MEDS: ONDANSETRON HCL INJ 2MG/ML 2ML 2 MG/ML VIAL IV PRN ×3 (04:50→23:20)
[2022-02-28] MEDS: TRAMADOL HCL 50 MG TAB PO PRN ×4 (04:59→23:20)
[2022-02-28 05:18] LABS: BASOPHILS % 0.3 % (0.0-1.0); EOSINOPHILS % 0.1 % (0.0-6.0); HEMOGLOBIN 13.2 g/dL (12.0-16.0); LYMPHOCYTES % 21.4 % (18.0-39.1); MEAN CORPUSCULAR HEMOGLOBIN 29.3 pg (28-32); MEAN CORPUSCULAR VOLUME 97.6 fL (81-99); MONOCYTES # (AUTO) 0.6 (0.2-0.8); MONOCYTES % 6.2 % (4.4-11.3); NEUTROPHILS # (AUTO) 6.6 (2.1-6.9); NEUTROPHILS % 71.7 % (38.7-80.0); PLATELET COUNT 193 x10e3/uL (140-360); RED BLOOD COUNT 4.51 x10e6/uL (3.6-5.1); RED CELL DISTRIBUTION WIDTH 14.2 % (11.7-14.4)
[2022-02-28 06:08] LABS: ALBUMIN/GLOBULIN RATIO 0.8 (0.8-2.0); ANION GAP 15.5 mmol/L (8-16); CALCIUM 8.8 mg/dL (8.4-10.2); CREATININE, SERUM 1.16 mg/dL (0.57-1.11); POTASSIUM 4.5 mmol/L (3.5-5.1)
[2022-02-28] MEDS: CLONIDINE HCL 0.1 MG TAB PO SCH ×5 (06:20→23:20)
[2022-02-28] MEDS: AMLODIPINE BESYLATE 5 MG TAB PO SCH (06:20)
[2022-02-28] MEDS: METRONIDAZOLE 500MG/NS 100ML 100 ML IV SCH ×5 (06:20→23:20)
[2022-02-28 06:25] LABS: CREATINE KINASE 31 IU/L (29-168)
[2022-02-28] MEDS: LEVOTHYROXINE SODIUM 50 MCG TAB PO SCH (09:49)
[2022-02-28] MEDS: DEXTROSE 5%/0.9% SOD CHL 1,000 ML IV SCH ×2 (09:49→20:00)
[2022-02-28] MEDS: LOSARTAN POTASSIUM 100 MG TAB PO SCH ×2 (09:51→17:08)
[2022-02-28] MEDS: METOPROLOL TARTRATE 25 MG TAB PO SCH ×2 (09:51→17:08)
[2022-02-28 14:25] LABS: CREATINE KINASE 30 IU/L (29-168)
[2022-02-28] MEDS ORDERED: BISACODYL 5 MG TAB EC PO ONE ×2 (17:30→18:00)
[2022-02-28] MEDS ORDERED: CITRATE OF MAGNESIA 300ML BOTTLE PO ONE (23:00)
[2022-03-01] VITALS (7 sets, daily range): BP systolic 108–141; BP diastolic 68–79
[2022-03-01] MEDS: AMLODIPINE BESYLATE 5 MG TAB PO SCH (06:00)
[2022-03-01] MEDS: CLONIDINE HCL 0.1 MG TAB PO SCH ×3 (06:00→17:30)
[2022-03-01] MEDS: METRONIDAZOLE 500MG/NS 100ML 100 ML IV SCH ×3 (06:00→18:40)
[2022-03-01] MEDS ORDERED: CITRATE OF MAGNESIA 300ML BOTTLE PO ONE (07:00)
[2022-03-01] MEDS: LEVOTHYROXINE SODIUM 50 MCG TAB PO SCH (07:17)
[2022-03-01] MEDS: ONDANSETRON HCL INJ 2MG/ML 2ML 2 MG/ML VIAL IV PRN ×2 (07:17→18:40)
[2022-03-01] MEDS: LOSARTAN POTASSIUM 100 MG TAB PO SCH ×2 (08:48→17:30)
[2022-03-01] MEDS: METOPROLOL TARTRATE 25 MG TAB PO SCH ×2 (08:49→17:30)
[2022-03-01] MEDS: DEXTROSE 5%/0.9% SOD CHL 1,000 ML IV SCH (08:49)
[2022-03-01] MEDS ORDERED: PROPOFOL IV EMULSION 10 MG/ML 20 ML VIAL ONE (12:43)
[2022-03-01] MEDS ORDERED: LIDOCAINE HCL 2% LOCAL INJ 5 ML SDV VIAL INJ ONE (12:43)
[2022-03-01] MEDS ORDERED: HYOSCYAMINE SULFATE 0.5 MG/ML INJ ONE (12:43)
[2022-03-01] MEDS: TRAMADOL HCL 50 MG TAB PO PRN (18:40)
[2022-03-02] MEDS: METRONIDAZOLE 500MG/NS 100ML 100 ML IV SCH ×2 (00:58→05:53)
[2022-03-02 01:20] VITALS: BP 101/57
[2022-03-02] MEDS: CLONIDINE HCL 0.1 MG TAB PO SCH ×2 (04:41)
[2022-03-02] MEDS: AMLODIPINE BESYLATE 5 MG TAB PO SCH (04:42)
[2022-03-02 05:06] VITALS: BP 99/61
[2022-03-02 07:39] VITALS: BP 117/69
[2022-03-02] MEDS: DEXTROSE 5%/0.9% SOD CHL 1,000 ML IV SCH (09:06)
[2022-03-02] MEDS: LEVOTHYROXINE SODIUM 50 MCG TAB PO SCH (09:06)
== END 2022-03-02 10:47 | disposition home or self-care (01) | DRG 377 ==
LOC: ER 07:50 → ERHOLD 09:46 → MED/SURG 11:18
PROVIDERS: ADMIT Internal Medicine; ATTEND Internal Medicine
PROC: 0DB98ZX Excision of Duodenum, Via Natural or Artificial Opening Endoscopic, Diagnostic (ICD-10-PCS; 2022-03-01)
PROC: 0DB78ZX Excision of Stomach, Pylorus, Via Natural or Artificial Opening Endoscopic, Diagnostic (ICD-10-PCS; 2022-03-01)
PROC: 0DBL8ZZ Excision of Transverse Colon, Via Natural or Artificial Opening Endoscopic (ICD-10-PCS; principal; 2022-03-01 15:26)
PROC: 0DB78ZX Excision of Stomach, Pylorus, Via Natural or Artificial Opening Endoscopic, Diagnostic (ICD-10-PCS; 2022-03-01 15:26)
PROC: 0DBM8ZZ Excision of Descending Colon, Via Natural or Artificial Opening Endoscopic (ICD-10-PCS; 2022-03-01 15:26)
DX: K57.31 Diverticulosis of large intestine without perforation or abscess with bleeding (principal); K55.039 Acute (reversible) ischemia of large intestine, extent unspecified; N39.0 Urinary tract infection, site not specified; D62 Acute posthemorrhagic anemia; C64.1 Malignant neoplasm of right kidney, except renal pelvis; N28.89 Other specified disorders of kidney and ureter; Z79.01 Long term (current) use of anticoagulants; K29.70 Gastritis, unspecified, without bleeding; K44.9 Diaphragmatic hernia without obstruction or gangrene; K20.90 Esophagitis, unspecified without bleeding; K63.5 Polyp of colon; K64.8 Other hemorrhoids; E78.5 Hyperlipidemia, unspecified; I48.0 Paroxysmal atrial fibrillation; M19.90 Unspecified osteoarthritis, unspecified site; Z86.73 Personal history of transient ischemic attack (TIA), and cerebral infarction without residual deficits; G89.4 Chronic pain syndrome; Z99.2 Dependence on renal dialysis; N39.46 Mixed incontinence; N28.1 Cyst of kidney, acquired; Q62.5 Duplication of ureter; E03.9 Hypothyroidism, unspecified; I10 Essential (primary) hypertension; Z20.822 Contact with and (suspected) exposure to COVID-19
CPT/HCPCS: 36415; 43239; 45380; 45385; 71045; 74174; 80053; 81001; 82550; 82553; 83735; 83880; 84484; 85025; 85610; 85730; 86850; 86900; 87086; 88305; 88312; 93005; 99284; J0360; J1980; J2001; J2270; J2405; J2543; J7030; J7040; J7042; J7050; Q9967; U0002

== ENCOUNTER 2022-06-24 10:50 | Inpatient (IN) | payer OTHER ==
[2022-06-21 10:19] LABS: BASOPHILS % 0.8 % (0.0-1.0); EOSINOPHILS # (AUTO) 0.2 (0.0-0.4); EOSINOPHILS % 4.1 % (0.0-6.0); HEMATOCRIT 40.5 % (34.2-44.1); HEMOGLOBIN 13.1 g/dL (12.0-16.0); LYMPHOCYTES # (AUTO) 2.2 (1.0-3.2); LYMPHOCYTES % 41.2 % (18.0-39.1); MEAN CORPUSCULAR HEMOGLOBIN 29.4 pg (28-32); MEAN CORPUSCULAR HGB CONC 32.3 g/dL (31-35); MEAN CORPUSCULAR VOLUME 90.8 fL (81-99); MONOCYTES # (AUTO) 0.5 (0.2-0.8); MONOCYTES % 8.8 % (4.4-11.3); NEUTROPHILS # (AUTO) 2.4 (2.1-6.9); NEUTROPHILS % 44.9 % (38.7-80.0); PLATELET COUNT 242 x10e3/uL (140-360); RED BLOOD COUNT 4.46 x10e6/uL (3.6-5.1); RED CELL DISTRIBUTION WIDTH 13.2 % (11.7-14.4)
[2022-06-21 10:35] LABS: INR 0.93; PROTHROMBIN TIME 13.3 seconds (11.9-14.5)
[2022-06-21 10:36] LABS: PARTIAL THROMBOPLASTIN TIME 29.7 seconds (23.8-35.5)
[2022-06-21 10:45] LABS: ALBUMIN 3.6 g/dL (3.5-5.0); ALBUMIN/GLOBULIN RATIO 1.1 (0.8-2.0); ANION GAP 11.6 mmol/L (8-16); CALCIUM 8.9 mg/dL (8.4-10.2); CREATININE, SERUM 1.07 mg/dL (0.57-1.11); POTASSIUM 4.6 mmol/L (3.5-5.1)
[~2022-06-24] VITALS: Ht 157.5 cm; Wt 73.5 kg
[~2022-06-24 10:50] MED LIST changes: +ATORVASTATIN CA20 MG PO; +ATP25 MG PO; +B COMPLEX1 EACH PO; +CLONIDINE HCL0.1 MG PO; +GLUTATHIONE PO; +GLUTATHIONE25 GM; +LOSARTAN PO; +LOSARTAN POTASS25 MG PO; +OMEGA-31000 MG PO; +PROTONIX40 MG PO; +VITAMIN C500 MG PO; +zinc PO
[2022-06-24] MEDS ORDERED: POVIDONE IODINE 0.05% 0.05 % ML PO ONE (12:13)
[2022-06-24] MEDS ORDERED: SUGAMMADEX SODIUM 200 MG/2 ML VIAL IV ONE (12:13)
[2022-06-24] MEDS ORDERED: DEXAMETHASONE SOD PHOS INJ 4 MG/ML SDV ONE (12:13)
[2022-06-24] MEDS ORDERED: LIDOCAINE HCL 2% LOCAL INJ 5 ML SDV VIAL INJ ONE (12:13)
[2022-06-24] MEDS ORDERED: SEVOFLURANE INHAL SOLN 250 ML PEN BTL ONE (12:13)
[2022-06-24] MEDS ORDERED: PROPOFOL IV EMULSION 10 MG/ML 20 ML VIAL ONE (12:13)
[2022-06-24] MEDS ORDERED: ACETAMINOPHEN 1000 MG/100 ML IV ONE (12:13)
[2022-06-24] MEDS ORDERED: ROCURONIUM BROMIDE 10 MG/ML 5ML VIAL IV ONE (12:13)
[2022-06-24] MEDS ORDERED: ONDANSETRON HCL INJ 2MG/ML 2ML 2 MG/ML VIAL ONE (12:13)
[2022-06-24] MEDS ORDERED: MIDAZOLAM HCL 2 MG/2 ML VIAL ONE (13:16)
[2022-06-24] MEDS ORDERED: FENTANYL CITRATE/PF 100MCG/2 ML INJ ONE ×2 (13:16→17:14)
[2022-06-24] MEDS ORDERED: MANNITOL 25% 12.5GM/50ML 50 ML ONE (13:18)
[2022-06-24] MEDS: SODIUM CHLORIDE 0.9% 250ML IRRIG IR SCH ×2 (16:00→20:00)
[2022-06-24] MEDS ORDERED: NALOXONE HCL INJ 0.4 MG/ML AMP IV PRN (16:00)
[2022-06-24] MEDS ORDERED: DIPHENHYDRAMINE HCL INJ 50 MG/ML VIAL IM PRN (16:00)
[2022-06-24] MEDS ORDERED: ONDANSETRON HCL INJ 2MG/ML 2ML 2 MG/ML VIAL IV PRN (16:00)
[2022-06-24] MEDS: MORPHINE SULFATE 1 MG/ML 30ML PCA IV PRN ×3 (16:08→22:00)
[2022-06-24 16:26] LABS: BASOPHILS % 0.2 % (0.0-1.0); EOSINOPHILS % 0.2 % (0.0-6.0); HEMATOCRIT 35.9 % (34.2-44.1); HEMOGLOBIN 11.4 g/dL (12.0-16.0); LYMPHOCYTES # (AUTO) 2.7 (1.0-3.2); LYMPHOCYTES % 29.3 % (18.0-39.1); MEAN CORPUSCULAR HEMOGLOBIN 29.4 pg (28-32); MEAN CORPUSCULAR HGB CONC 31.8 g/dL (31-35); MEAN CORPUSCULAR VOLUME 92.5 fL (81-99); MONOCYTES # (AUTO) 0.3 (0.2-0.8); MONOCYTES % 2.8 % (4.4-11.3); NEUTROPHILS # (AUTO) 6.1 (2.1-6.9); NEUTROPHILS % 67.3 % (38.7-80.0); PLATELET COUNT 180 x10e3/uL (140-360); RED BLOOD COUNT 3.88 x10e6/uL (3.6-5.1); RED CELL DISTRIBUTION WIDTH 12.9 % (11.7-14.4)
[2022-06-24] MEDS ORDERED: HYDROMORPHONE 1MG/1ML INJ ONE (16:37)
[2022-06-24 16:45] LABS: ANION GAP 18.4 mmol/L (8-16); CALCIUM 8.3 mg/dL (8.4-10.2); CREATININE, SERUM 1.05 mg/dL (0.57-1.11); POTASSIUM 4.4 mmol/L (3.5-5.1)
[2022-06-24] MEDS ORDERED: METOCLOPRAMIDE HCL 10 MG/2ML VIAL ONE (17:29)
[2022-06-24] MEDS ORDERED: D5.45%NS/KCL 20MEQ 1,000 ML IV SCH (18:00)
[2022-06-24 20:00] VITALS: BP 169/70
[2022-06-24 21:00] VITALS: BP 169/70
[2022-06-24 22:08] VITALS: BP 169/70
[2022-06-25] VITALS (9 sets, daily range): BP systolic 97–136; BP diastolic 46–64
[2022-06-25] MEDS: MORPHINE SULFATE 1 MG/ML 30ML PCA IV PRN (01:42)
[2022-06-25] MEDS: SODIUM CHLORIDE 0.9% 250ML IRRIG IR SCH ×3 (04:00→08:00)
[2022-06-25 05:03] LABS: BASOPHILS % 0.2 % (0.0-1.0); HEMATOCRIT 37.3 % (34.2-44.1); HEMOGLOBIN 12.1 g/dL (12.0-16.0); LYMPHOCYTES % 6.5 % (18.0-39.1); MEAN CORPUSCULAR HEMOGLOBIN 29.4 pg (28-32); MEAN CORPUSCULAR HGB CONC 32.4 g/dL (31-35); MEAN CORPUSCULAR VOLUME 90.5 fL (81-99); MONOCYTES # (AUTO) 1.4 (0.2-0.8); MONOCYTES % 8.8 % (4.4-11.3); NEUTROPHILS # (AUTO) 12.9 (2.1-6.9); PLATELET COUNT 190 x10e3/uL (140-360); RED BLOOD COUNT 4.12 x10e6/uL (3.6-5.1); RED CELL DISTRIBUTION WIDTH 13.2 % (11.7-14.4)
[2022-06-25 05:52] LABS: ANION GAP 15.6 mmol/L (8-16); CALCIUM 8.4 mg/dL (8.4-10.2); CREATININE, SERUM 1.49 mg/dL (0.57-1.11); POTASSIUM 5.6 mmol/L (3.5-5.1)
[2022-06-25] MEDS: SODIUM CHLORIDE 0.9% 1000ML 1,000 ML IV SCH ×3 (09:35→23:25)
[2022-06-25] MEDS ORDERED: MORPHINE SULFATE 1 MG/ML 30ML PCA IV PRN (13:00)
[2022-06-26] VITALS (9 sets, daily range): BP systolic 128–159; BP diastolic 63–86
[2022-06-26 05:44] LABS: BASOPHILS % 0.2 % (0.0-1.0); EOSINOPHILS % 0.2 % (0.0-6.0); HEMATOCRIT 36.3 % (34.2-44.1); HEMOGLOBIN 11.2 g/dL (12.0-16.0); LYMPHOCYTES # (AUTO) 1.6 (1.0-3.2); LYMPHOCYTES % 15.8 % (18.0-39.1); MEAN CORPUSCULAR HEMOGLOBIN 29.4 pg (28-32); MEAN CORPUSCULAR HGB CONC 30.9 g/dL (31-35); MEAN CORPUSCULAR VOLUME 95.3 fL (81-99); MONOCYTES # (AUTO) 1.1 (0.2-0.8); MONOCYTES % 10.4 % (4.4-11.3); NEUTROPHILS # (AUTO) 7.6 (2.1-6.9); NEUTROPHILS % 73.2 % (38.7-80.0); PLATELET COUNT 169 x10e3/uL (140-360); RED BLOOD COUNT 3.81 x10e6/uL (3.6-5.1); RED CELL DISTRIBUTION WIDTH 13.7 % (11.7-14.4)
[2022-06-26] MEDS: SODIUM CHLORIDE 0.9% 1000ML 1,000 ML IV SCH ×2 (05:45→20:16)
[2022-06-26 06:08] LABS: ANION GAP 14.6 mmol/L (8-16); CALCIUM 8.1 mg/dL (8.4-10.2); CREATININE, SERUM 1.67 mg/dL (0.57-1.11); POTASSIUM 4.6 mmol/L (3.5-5.1)
[2022-06-26] MEDS: ONDANSETRON HCL INJ 2MG/ML 2ML 2 MG/ML VIAL IV PRN ×2 (07:51→16:37)
[2022-06-26] MEDS ORDERED: Morphine 4mg INJECTION 4 MG/ML INJ IV PRN (08:30)
[2022-06-26] MEDS ORDERED: ACETAMINOPHEN 325 MG TAB PO PRN (08:30)
[2022-06-26] MEDS ORDERED: MAGNESIUM HYDROXIDE 30 ML UDC PO PRN (08:30)
[2022-06-26] MEDS ORDERED: HYDROCODONE/APAP 10MG-325MG TAB PO PRN (08:30)
[2022-06-26] MEDS: TRAMADOL HCL 50 MG TAB PO PRN (12:56)
[2022-06-26] MEDS: SENNA-S TABLET PO SCH ×2 (14:08→16:46)
[2022-06-26] MEDS: DOCUSATE SODIUM 100 MG CAP PO SCH (16:46)
[2022-06-27] VITALS (12 sets, daily range): BP systolic 132–187; BP diastolic 68–90
[2022-06-27] MEDS: SODIUM CHLORIDE 0.9% 1000ML 1,000 ML IV SCH ×2 (02:55→22:58)
[2022-06-27] MEDS: TRAMADOL HCL 50 MG TAB PO PRN ×3 (03:56→20:41)
[2022-06-27] MEDS: ONDANSETRON HCL INJ 2MG/ML 2ML 2 MG/ML VIAL IV PRN ×2 (04:02→21:35)
[2022-06-27 04:57] LABS: BASOPHILS % 0.3 % (0.0-1.0); EOSINOPHILS # (AUTO) 0.3 (0.0-0.4); EOSINOPHILS % 2.5 % (0.0-6.0); HEMATOCRIT 38.5 % (34.2-44.1); HEMOGLOBIN 11.6 g/dL (12.0-16.0); LYMPHOCYTES # (AUTO) 1.7 (1.0-3.2); LYMPHOCYTES % 14.9 % (18.0-39.1); MEAN CORPUSCULAR HEMOGLOBIN 29.2 pg (28-32); MEAN CORPUSCULAR HGB CONC 30.1 g/dL (31-35); MONOCYTES # (AUTO) 1.3 (0.2-0.8); MONOCYTES % 10.7 % (4.4-11.3); NEUTROPHILS # (AUTO) 8.3 (2.1-6.9); NEUTROPHILS % 71.3 % (38.7-80.0); PLATELET COUNT 178 x10e3/uL (140-360); RED BLOOD COUNT 3.97 x10e6/uL (3.6-5.1); RED CELL DISTRIBUTION WIDTH 13.4 % (11.7-14.4)
[2022-06-27 05:18] LABS: ANION GAP 15.3 mmol/L (8-16); CALCIUM 8.3 mg/dL (8.4-10.2); CREATININE, SERUM 1.49 mg/dL (0.57-1.11); POTASSIUM 4.3 mmol/L (3.5-5.1)
[2022-06-27] MEDS: DOCUSATE SODIUM 100 MG CAP PO SCH ×2 (08:19→15:45)
[2022-06-27] MEDS: SENNA-S TABLET PO SCH ×2 (08:19→15:06)
[2022-06-27] MEDS ORDERED: BISACODYL 10 MG SUPP PR ONE (09:30)
[2022-06-27] MEDS: HYDRALAZINE HCL 20 MG/ML VIAL IV PRN (20:52)
[2022-06-28] VITALS (7 sets, daily range): BP systolic 139–167; BP diastolic 70–92
[2022-06-28] MEDS: HYDRALAZINE HCL 20 MG/ML VIAL IV PRN (03:42)
[2022-06-28] MEDS: TRAMADOL HCL 50 MG TAB PO PRN ×2 (03:43→18:11)
[2022-06-28] MEDS: ONDANSETRON HCL INJ 2MG/ML 2ML 2 MG/ML VIAL IV PRN (04:33)
[2022-06-28 07:35] LABS: BASOPHILS % 0.1 % (0.0-1.0); EOSINOPHILS % 0.1 % (0.0-6.0); HEMATOCRIT 36.7 % (34.2-44.1); HEMOGLOBIN 11.1 g/dL (12.0-16.0); LYMPHOCYTES # (AUTO) 0.5 (1.0-3.2); LYMPHOCYTES % 4.7 % (18.0-39.1); MEAN CORPUSCULAR HEMOGLOBIN 29.4 pg (28-32); MEAN CORPUSCULAR HGB CONC 30.2 g/dL (31-35); MEAN CORPUSCULAR VOLUME 97.1 fL (81-99); MONOCYTES # (AUTO) 0.6 (0.2-0.8); MONOCYTES % 5.6 % (4.4-11.3); NEUTROPHILS # (AUTO) 9.4 (2.1-6.9); NEUTROPHILS % 89.1 % (38.7-80.0); PLATELET COUNT 201 x10e3/uL (140-360); RED BLOOD COUNT 3.78 x10e6/uL (3.6-5.1); RED CELL DISTRIBUTION WIDTH 13.4 % (11.7-14.4)
[2022-06-28 08:23] LABS: CALCIUM 8.5 mg/dL (8.4-10.2); CREATININE, SERUM 1.13 mg/dL (0.57-1.11)
[2022-06-28] MEDS ORDERED: BISACODYL 10 MG SUPP PR PRN (09:00)
[2022-06-28] MEDS ORDERED: ONDANSETRON HCL INJ 2MG/ML 2ML 2 MG/ML VIAL IV PRN (09:00)
[2022-06-28] MEDS: DOCUSATE SODIUM 100 MG CAP PO SCH ×2 (09:14→16:51)
[2022-06-28] MEDS: SENNA-S TABLET PO SCH ×2 (09:14→16:51)
[2022-06-28] MEDS ORDERED: BISACODYL 10 MG SUPP PR ONE (10:00)
[2022-06-28] MEDS: METOCLOPRAMIDE HCL 10 MG/2ML VIAL IV SCH ×3 (10:53→22:35)
[2022-06-28] MEDS: ENOXAPARIN SOD INJ 40 MG/0.4 ML SYR SC SCH (16:52)
[2022-06-28] MEDS: SODIUM CHLORIDE 0.9% 1000ML 1,000 ML IV SCH (17:04)
[2022-06-29] VITALS (7 sets, daily range): BP systolic 132–178; BP diastolic 67–92
[2022-06-29] MEDS: METOCLOPRAMIDE HCL 10 MG/2ML VIAL IV SCH (04:38)
[2022-06-29] MEDS: SODIUM CHLORIDE 0.9% 1000ML 1,000 ML IV SCH (06:15)
[2022-06-29] MEDS: SENNA-S TABLET PO SCH ×2 (09:00→17:00)
[2022-06-29] MEDS: DOCUSATE SODIUM 100 MG CAP PO SCH ×2 (10:15→17:00)
[2022-06-29] MEDS: TRAMADOL HCL 50 MG TAB PO PRN ×2 (10:20→20:05)
[2022-06-29] MEDS: METOCLOPRAMIDE HCL 10 MG TAB PO SCH ×3 (11:30→20:06)
[2022-06-29] MEDS: ENOXAPARIN SOD INJ 40 MG/0.4 ML SYR SC SCH (17:00)
[2022-06-30] VITALS: BP 134/70
[2022-06-30] MEDS: TRAMADOL HCL 50 MG TAB PO PRN ×3 (02:25→17:09)
[2022-06-30 04:00] VITALS: BP 154/81
[2022-06-30] MEDS: METOCLOPRAMIDE HCL 10 MG TAB PO SCH ×4 (07:30→21:03)
[2022-06-30 08:26] VITALS: BP 163/77
[2022-06-30] MEDS: NIFEDIPINE CR 30 MG TAB PO SCH (10:11)
[2022-06-30] MEDS: LEVOTHYROXINE SODIUM 25 MCG TABLET PO SCH (10:12)
[2022-06-30] MEDS: ASCORBIC ACID 500 MG TAB PO SCH (10:12)
[2022-06-30] MEDS: PANTOPRAZOLE SOD 40 MG TABEC PO SCH (10:12)
[2022-06-30] MEDS: SENNA-S TABLET PO SCH ×2 (10:13→17:08)
[2022-06-30] MEDS: DOCUSATE SODIUM 100 MG CAP PO SCH ×2 (10:13→17:00)
[2022-06-30 13:22] VITALS: BP 165/96
[2022-06-30] MEDS: ENOXAPARIN SOD INJ 40 MG/0.4 ML SYR SC SCH (17:00)
[2022-06-30] MEDS: HYDRALAZINE HCL 20 MG/ML VIAL IV PRN (17:10)
[2022-06-30 17:28] VITALS: BP 179/94
[2022-06-30 20:00] VITALS: BP 144/86
[2022-07-01] VITALS (11 sets, daily range): BP systolic 115–180; BP diastolic 65–92
[2022-07-01] MEDS: TRAMADOL HCL 50 MG TAB PO PRN ×4 (02:13→23:35)
[2022-07-01] MEDS: LEVOTHYROXINE SODIUM 25 MCG TABLET PO SCH (05:19)
[2022-07-01 05:46] LABS: BASOPHILS # (AUTO) 0.1 (0.0-0.1); BASOPHILS % 0.6 % (0.0-1.0); EOSINOPHILS # (AUTO) 0.5 (0.0-0.4); EOSINOPHILS % 5.8 % (0.0-6.0); HEMATOCRIT 37.8 % (34.2-44.1); HEMOGLOBIN 11.9 g/dL (12.0-16.0); LYMPHOCYTES # (AUTO) 2.3 (1.0-3.2); LYMPHOCYTES % 25.6 % (18.0-39.1); MEAN CORPUSCULAR HEMOGLOBIN 29.1 pg (28-32); MEAN CORPUSCULAR HGB CONC 31.5 g/dL (31-35); MEAN CORPUSCULAR VOLUME 92.4 fL (81-99); MONOCYTES # (AUTO) 1.1 (0.2-0.8); MONOCYTES % 11.9 % (4.4-11.3); NEUTROPHILS # (AUTO) 4.9 (2.1-6.9); NEUTROPHILS % 55.5 % (38.7-80.0); PLATELET COUNT 311 x10e3/uL (140-360); RED BLOOD COUNT 4.09 x10e6/uL (3.6-5.1); RED CELL DISTRIBUTION WIDTH 13.4 % (11.7-14.4)
[2022-07-01 06:06] LABS: ANION GAP 15.6 mmol/L (8-16); CALCIUM 8.9 mg/dL (8.4-10.2); CREATININE, SERUM 1.13 mg/dL (0.57-1.11); POTASSIUM 3.6 mmol/L (3.5-5.1)
[2022-07-01] MEDS ORDERED: IBUPROFEN 200 MG TAB PO PRN (08:45)
[2022-07-01] MEDS: ASCORBIC ACID 500 MG TAB PO SCH (08:58)
[2022-07-01] MEDS: PANTOPRAZOLE SOD 40 MG TABEC PO SCH (08:58)
[2022-07-01] MEDS: SENNA-S TABLET PO SCH ×3 (08:58→17:50)
[2022-07-01] MEDS: METOCLOPRAMIDE HCL 10 MG TAB PO SCH ×4 (08:58→20:42)
[2022-07-01] MEDS: DOCUSATE SODIUM 100 MG CAP PO SCH ×2 (08:58→17:50)
[2022-07-01] MEDS: NIFEDIPINE CR 30 MG TAB PO SCH (08:59)
[2022-07-01] MEDS ORDERED: NIFEDIPINE CR 30 MG TAB PO SCH (09:00)
[2022-07-01] MEDS ORDERED: MAGNESIUM HYDROXIDE 30 ML UDC PO ONE (09:15)
[2022-07-01] MEDS ORDERED: BISACODYL 10 MG SUPP PR ONE (09:15)
[2022-07-01] MEDS: BISACODYL 5 MG TAB EC PO ONE ×2 (14:59→17:49)
[2022-07-01] MEDS: ENOXAPARIN SOD INJ 40 MG/0.4 ML SYR SC SCH (17:51)
[2022-07-01] MEDS ORDERED: ATORVASTATIN 20 MG TAB PO SCH (21:00)
[2022-07-02] VITALS (7 sets, daily range): BP systolic 117–160; BP diastolic 61–96
[2022-07-02] MEDS: LEVOTHYROXINE SODIUM 25 MCG TABLET PO SCH (06:34)
[2022-07-02] MEDS: DOCUSATE SODIUM 100 MG CAP PO SCH (09:19)
[2022-07-02] MEDS: NIFEDIPINE CR 30 MG TAB PO SCH (09:19)
[2022-07-02] MEDS: ASCORBIC ACID 500 MG TAB PO SCH (09:19)
[2022-07-02] MEDS: SENNA-S TABLET PO SCH (09:19)
[2022-07-02] MEDS: METOCLOPRAMIDE HCL 10 MG TAB PO SCH (09:19)
[2022-07-02] MEDS: TRAMADOL HCL 50 MG TAB PO PRN (09:20)
[2022-07-02] MEDS: PANTOPRAZOLE SOD 40 MG TABEC PO SCH (09:20)
== END 2022-07-02 11:40 | disposition home or self-care (01) | DRG 657 ==
LOC: OR 10:50 → PACU V 15:55 → MED/SURG 19:04
PROVIDERS: ADMIT Internal Medicine; ATTEND Internal Medicine
PROC: 0TB00ZZ Excision of Right Kidney, Open Approach (ICD-10-PCS; principal; 2022-06-24 13:15)
DX: C64.1 Malignant neoplasm of right kidney, except renal pelvis (principal); I48.20 Chronic atrial fibrillation, unspecified; N17.9 Acute kidney failure, unspecified; N28.1 Cyst of kidney, acquired; N39.46 Mixed incontinence; N18.9 Chronic kidney disease, unspecified; R31.29 Other microscopic hematuria; E03.9 Hypothyroidism, unspecified; I12.9 Hypertensive chronic kidney disease with stage 1 through stage 4 chronic kidney disease, or unspecified chronic kidney disease; Z86.73 Personal history of transient ischemic attack (TIA), and cerebral infarction without residual deficits; Z79.01 Long term (current) use of anticoagulants; Z87.442 Personal history of urinary calculi; E78.5 Hyperlipidemia, unspecified; K21.9 Gastro-esophageal reflux disease without esophagitis; K59.00 Constipation, unspecified; Z88.6 Allergy status to analgesic agent; Z91.014 Allergy to mammalian meats; Z88.5 Allergy status to narcotic agent; Z90.49 Acquired absence of other specified parts of digestive tract; Z90.710 Acquired absence of both cervix and uterus; E66.9 Obesity, unspecified; Z68.29 Body mass index [BMI] 29.0-29.9, adult
CPT/HCPCS: 36415; 51798; 71045; 71046; 80048; 80053; 83735; 85025; 85610; 85730; 86850; 86900; 88304; 88305; 88307; 88311; 88331; 88342; 93005; 94799; 99251; J0360; J0690; J1100; J1170; J1650; J2001; J2150; J2250; J2270; J2405; J2765; J3010; J7030

== ENCOUNTER 2022-08-26 08:00 | Outpatient (RCR) | payer OTHER | END 2022-09-04 | LOC: OT 08:00 | PROVIDERS: ATTEND Physician Assistant | DX: S43.422A Sprain of left rotator cuff capsule, initial encounter (principal) ==

== ENCOUNTER 2022-11-19 14:45 | Emergency (ER) | payer OTHER ==
[~2022-11-19] VITALS: Ht 157.5 cm; Wt 73.5 kg
[2022-11-19 15:53] LABS: BASOPHILS % 0.5 % (0.0-1.0); EOSINOPHILS % 0.3 % (0.0-6.0); HEMATOCRIT 40.9 % (34.2-44.1); HEMOGLOBIN 13.1 g/dL (12.0-16.0); LYMPHOCYTES # (AUTO) 1.6 (1.0-3.2); LYMPHOCYTES % 20.9 % (18.0-39.1); MEAN CORPUSCULAR HEMOGLOBIN 28.5 pg (28-32); MEAN CORPUSCULAR VOLUME 89.1 fL (81-99); MONOCYTES # (AUTO) 0.5 (0.2-0.8); MONOCYTES % 6.5 % (4.4-11.3); NEUTROPHILS # (AUTO) 5.6 (2.1-6.9); NEUTROPHILS % 71.5 % (38.7-80.0); PLATELET COUNT 249 x10e3/uL (140-360); RED BLOOD COUNT 4.59 x10e6/uL (3.6-5.1); RED CELL DISTRIBUTION WIDTH 14.1 % (11.7-14.4)
[2022-11-19 16:10] LABS: ANION GAP 14.3 mmol/L (8-16); CALCIUM 9.4 mg/dL (8.4-10.2); POTASSIUM 4.3 mmol/L (3.5-5.1)
[2022-11-19 16:23] LABS: ALBUMIN 3.7 g/dL (3.5-5.0); CREATININE, SERUM 1.39 mg/dL (0.57-1.11)
[2022-11-19] MEDS ORDERED: ONDANSETRON HCL INJ 2MG/ML 2ML 2 MG/ML VIAL IV STA (16:30)
[2022-11-19] MEDS ORDERED: ASPIRIN 81 MG CHEW TAB PO ONE (17:00)
[2022-11-19 17:17] LABS: CREATINE KINASE MB 0.8 ng/mL (0-5.0)
[2022-11-19 17:29] LABS: CLARITY,URINE CLEAR (CLEAR); COLOR,URINE YELLOW (YELLOW); KETONES,URINE NEGATIVE (NEGATIVE); LEUKOCYTE ESTERASE ,URINE NEGATIVE (NEGATIVE); NITRITE,URINE NEGATIVE (NEGATIVE); PROTEIN,URINE DIPSTICK NEGATIVE (NEGATIVE); URINE UROBILINOGEN 0.2 mg/dL (0.2 - 1)
[2022-11-19 17:40] LABS: BACTERIA,URINE RARE /HPF
[2022-11-19] MEDS ORDERED: ONDANSETRON ODT4 MG PO (18:09)
== END 2022-11-19 18:31 | disposition home or self-care (01) ==
LOC: ER 15:53
DX: R53.1 Weakness (principal); I12.9 Hypertensive chronic kidney disease with stage 1 through stage 4 chronic kidney disease, or unspecified chronic kidney disease; N18.9 Chronic kidney disease, unspecified; E03.9 Hypothyroidism, unspecified; I48.91 Unspecified atrial fibrillation; D64.9 Anemia, unspecified; Z85.528 Personal history of other malignant neoplasm of kidney; Z87.19 Personal history of other diseases of the digestive system
CPT/HCPCS: 36415; 74176; 76705; 80053; 81001; 82550; 82553; 84484; 85025; 93005; 99284

== ENCOUNTER 2023-03-26 17:19 | Inpatient (IN) | payer MEDICARE, OTHER ==
[~2023-03-26] VITALS: Ht 157.5 cm; Wt 73.5 kg
[~2023-03-26 17:19] MED LIST changes: +ONDANSETRON ODT4 MG PO
[2023-03-26 18:30] LABS: BASOPHILS % 0.5 % (0.0-1.0); EOSINOPHILS # (AUTO) 0.2 (0.0-0.4); EOSINOPHILS % 3.5 % (0.0-6.0); HEMATOCRIT 35.6 % (34.2-44.1); HEMOGLOBIN 12.8 g/dL (12.0-16.0); LYMPHOCYTES # (AUTO) 2.2 (1.0-3.2); LYMPHOCYTES % 39.6 % (18.0-39.1); MEAN CORPUSCULAR HEMOGLOBIN 29.4 pg (28-32); MEAN CORPUSCULAR VOLUME 81.8 fL (81-99); MONOCYTES # (AUTO) 0.7 (0.2-0.8); MONOCYTES % 12.7 % (4.4-11.3); NEUTROPHILS # (AUTO) 2.5 (2.1-6.9); NEUTROPHILS % 43.5 % (38.7-80.0); PLATELET COUNT 286 x10e3/uL (140-360); RED BLOOD COUNT 4.35 x10e6/uL (3.6-5.1); RED CELL DISTRIBUTION WIDTH 11.6 % (11.7-14.4)
[2023-03-26 18:40] LABS: ALBUMIN 3.4 g/dL (3.5-5.0); ALBUMIN/GLOBULIN RATIO 1.1 (0.8-2.0); ANION GAP 14.1 mmol/L (8-16); CALCIUM 9.1 mg/dL (8.4-10.2); CREATININE, SERUM 1.24 mg/dL (0.57-1.11); POTASSIUM 3.1 mmol/L (3.5-5.1)
[2023-03-26] MEDS ORDERED: SODIUM CHLORIDE 0.9% 1000ML 1,000 ML IV SCH (19:00)
[2023-03-26] MEDS ORDERED: IBUPROFEN 400 MG TAB PO ONE (19:30)
[2023-03-26 21:42] VITALS: BP 167/96; PULSE 55; RESP 22; TEMP 97.9; O2SAT 98
[2023-03-26 21:52] VITALS: BP 167/96; PULSE 55; RESP 22; TEMP 97.9; O2SAT 98
[2023-03-26 22:00] VITALS: BP 162/86; PULSE 52; RESP 13; TEMP 97.9; O2SAT 99
[2023-03-26 23:00] VITALS: BP 127/84; PULSE 51; RESP 13; O2SAT 99
[2023-03-27] VITALS (15 sets, daily range): BP systolic 115–167; BP diastolic 65–93; PULSE 46–70; RESP 12–21; TEMP 97.9–98; O2SAT 96–100
[2023-03-27] MEDS: ONDANSETRON HCL INJ 2MG/ML 2ML 2 MG/ML VIAL IV PRN ×2 (04:21→11:22)
[2023-03-27] MEDS ORDERED: LOSARTAN POTASS25 MG PO (04:33)
[2023-03-27 06:40] LABS: BASOPHILS % 0.4 % (0.0-1.0); EOSINOPHILS # (AUTO) 0.2 (0.0-0.4); EOSINOPHILS % 3.9 % (0.0-6.0); HEMATOCRIT 33.9 % (34.2-44.1); HEMOGLOBIN 11.7 g/dL (12.0-16.0); LYMPHOCYTES # (AUTO) 1.9 (1.0-3.2); LYMPHOCYTES % 40.3 % (18.0-39.1); MEAN CORPUSCULAR HEMOGLOBIN 29.1 pg (28-32); MEAN CORPUSCULAR HGB CONC 34.5 g/dL (31-35); MEAN CORPUSCULAR VOLUME 84.3 fL (81-99); MONOCYTES # (AUTO) 0.6 (0.2-0.8); MONOCYTES % 13.7 % (4.4-11.3); NEUTROPHILS # (AUTO) 1.9 (2.1-6.9); NEUTROPHILS % 41.5 % (38.7-80.0); PLATELET COUNT 228 x10e3/uL (140-360); RED BLOOD COUNT 4.02 x10e6/uL (3.6-5.1); RED CELL DISTRIBUTION WIDTH 11.4 % (11.7-14.4)
[2023-03-27 07:13] LABS: ALBUMIN 2.9 g/dL (3.5-5.0); ALBUMIN/GLOBULIN RATIO 1.1 (0.8-2.0); ANION GAP 12.4 mmol/L (8-16); CALCIUM 8.6 mg/dL (8.4-10.2); CREATININE, SERUM 1.06 mg/dL (0.57-1.11); POTASSIUM 3.4 mmol/L (3.5-5.1)
[2023-03-27] MEDS ORDERED: ONDANSETRON HCL 4 MG ORAL DISINTEGRATING TAB PO PRN (10:00)
[2023-03-27] MEDS: TRAMADOL HCL 50 MG TAB PO PRN (11:22)
[2023-03-27 15:03] LABS: ANION GAP 13.9 mmol/L (8-16); CALCIUM 8.4 mg/dL (8.4-10.2); CREATININE, SERUM 1.32 mg/dL (0.57-1.11); POTASSIUM 4.9 mmol/L (3.5-5.1)
[2023-03-27 17:26] LABS: ANION GAP 16.1 mmol/L (8-16); CALCIUM 8.5 mg/dL (8.4-10.2); CREATININE, SERUM 1.31 mg/dL (0.57-1.11); POTASSIUM 4.1 mmol/L (3.5-5.1)
[2023-03-27] MEDS: SODIUM CHLORIDE 1 GM TAB PO SCH (18:47)
[2023-03-27] MEDS: ATORVASTATIN 20 MG TAB PO SCH (20:50)
[2023-03-27 22:15] LABS: CLARITY,URINE CLEAR (CLEAR); COLOR,URINE YELLOW (YELLOW); KETONES,URINE NEGATIVE (NEGATIVE); LEUKOCYTE ESTERASE ,URINE NEGATIVE (NEGATIVE); NITRITE,URINE NEGATIVE (NEGATIVE); PROTEIN,URINE DIPSTICK NEGATIVE (NEGATIVE); URINE UROBILINOGEN 0.2 mg/dL (0.2 - 1)
[2023-03-27 22:30] LABS: BACTERIA,URINE RARE /HPF; EPITHELIAL CELLS,URINE RARE /LPF; RBC,URINE 0-5 /HPF (0-5); WBC,URINE (MAN) 0-5 /HPF (0-5)
[2023-03-28] VITALS (7 sets, daily range): BP systolic 109–127; BP diastolic 55–74; PULSE 50–92; RESP 15–20; TEMP 97.4–97.8; O2SAT 98–100
[2023-03-28 00:46] LABS: POTASSIUM,URINE 4.7 mmol/L; SODIUM,URINE 24 mmol/L
[2023-03-28] MEDS: TRAMADOL HCL 50 MG TAB PO PRN ×3 (02:14→21:57)
[2023-03-28 05:44] LABS: BASOPHILS % 0.7 % (0.0-1.0); EOSINOPHILS # (AUTO) 0.2 (0.0-0.4); EOSINOPHILS % 3.1 % (0.0-6.0); HEMATOCRIT 35.2 % (34.2-44.1); HEMOGLOBIN 11.8 g/dL (12.0-16.0); LYMPHOCYTES # (AUTO) 1.8 (1.0-3.2); LYMPHOCYTES % 29.6 % (18.0-39.1); MEAN CORPUSCULAR HGB CONC 33.5 g/dL (31-35); MEAN CORPUSCULAR VOLUME 86.5 fL (81-99); MONOCYTES # (AUTO) 0.8 (0.2-0.8); MONOCYTES % 13.6 % (4.4-11.3); NEUTROPHILS # (AUTO) 3.2 (2.1-6.9); NEUTROPHILS % 52.8 % (38.7-80.0); PLATELET COUNT 252 x10e3/uL (140-360); RED BLOOD COUNT 4.07 x10e6/uL (3.6-5.1); RED CELL DISTRIBUTION WIDTH 11.8 % (11.7-14.4)
[2023-03-28 06:12] LABS: ANION GAP 15.1 mmol/L (8-16); CALCIUM 8.4 mg/dL (8.4-10.2); CREATININE, SERUM 1.23 mg/dL (0.57-1.11); POTASSIUM 4.1 mmol/L (3.5-5.1)
[2023-03-28] MEDS: LEVOTHYROXINE SODIUM 25 MCG TABLET PO SCH (06:27)
[2023-03-28 07:00] LABS: FREE THYROXINE INDEX 2.625 (1.4-3.8); THYROID STIMULATING HORMONE 3.175 uIU/mL (0.350-4.940)
[2023-03-28] MEDS ORDERED: PANTOPRAZOLE SODIUM 40 MG SUSPDR.PKT PO SCH (09:00)
[2023-03-28] MEDS: ASCORBIC ACID 500 MG TAB PO SCH (09:47)
[2023-03-28] MEDS: RIVAROXABAN 20 MG TABLET PO SCH (09:47)
[2023-03-28] MEDS: SODIUM CHLORIDE 1 GM TAB PO SCH ×2 (09:48→21:23)
[2023-03-28] MEDS: CHOLECALCIFEROL 1,000 UNIT TAB PO SCH (09:48)
[2023-03-28] MEDS ORDERED: HYDRALAZINE HCL 25 MG TAB PO PRN (10:00)
[2023-03-28] MEDS ORDERED: MAGNESIUM HYDROXIDE 30 ML UDC PO ONE (10:30)
[2023-03-28] MEDS ORDERED: SENNA-S TABLET PO SCH (10:30)
[2023-03-28] MEDS: PANTOPRAZOLE SOD 40 MG TABEC PO SCH (10:43)
[2023-03-28] MEDS ORDERED: SODIUM CHLORIDE 1 GM TAB PO SCH (18:45)
[2023-03-28] MEDS: ATORVASTATIN 20 MG TAB PO SCH (21:22)
[2023-03-28] MEDS: SENNA-S TABLET PO SCH (21:22)
[2023-03-28] MEDS: MAGNESIUM HYDROXIDE 30 ML UDC PO PRN (21:23)
[2023-03-29] VITALS (8 sets, daily range): BP systolic 95–127; BP diastolic 53–68; PULSE 50–95; RESP 16–20; TEMP 97.3–98.4; O2SAT 97–100
[2023-03-29] MEDS: MAGNESIUM HYDROXIDE 30 ML UDC PO PRN ×2 (03:31→10:21)
[2023-03-29] MEDS: LEVOTHYROXINE SODIUM 25 MCG TABLET PO SCH (05:18)
[2023-03-29 08:16] LABS: ANION GAP 12.5 mmol/L (8-16); CALCIUM 8.8 mg/dL (8.4-10.2); CREATININE, SERUM 1.15 mg/dL (0.57-1.11)
[2023-03-29] MEDS: RIVAROXABAN 20 MG TABLET PO SCH (08:22)
[2023-03-29] MEDS: SENNA-S TABLET PO SCH ×2 (08:22→20:26)
[2023-03-29] MEDS: SODIUM CHLORIDE 1 GM TAB PO SCH ×2 (08:23→16:27)
[2023-03-29] MEDS: ASCORBIC ACID 500 MG TAB PO SCH (08:23)
[2023-03-29] MEDS: CHOLECALCIFEROL 1,000 UNIT TAB PO SCH (08:23)
[2023-03-29] MEDS: PANTOPRAZOLE SOD 40 MG TABEC PO SCH (08:23)
[2023-03-29 08:34] LABS: POTASSIUM 5.5 mmol/L (3.5-5.1)
[2023-03-29 13:31] LABS: ANION GAP 15.9 mmol/L (8-16); CREATININE, SERUM 1.16 mg/dL (0.57-1.11); POTASSIUM 4.9 mmol/L (3.5-5.1)
[2023-03-29] MEDS: ATORVASTATIN 20 MG TAB PO SCH (20:26)
[2023-03-30 00:09] VITALS: BP 95/66; PULSE 55; RESP 18; TEMP 97.7; O2SAT 98
[2023-03-30 04:42] VITALS: BP 111/64; PULSE 59; RESP 16; TEMP 97.5; O2SAT 98
[2023-03-30] MEDS: LEVOTHYROXINE SODIUM 25 MCG TABLET PO SCH (05:08)
[2023-03-30 08:32] VITALS: BP 132/71; PULSE 58; RESP 19; TEMP 98.7; O2SAT 99
[2023-03-30 08:37] LABS: ANION GAP 14.6 mmol/L (8-16); CALCIUM 8.7 mg/dL (8.4-10.2); CREATININE, SERUM 1.11 mg/dL (0.57-1.11); POTASSIUM 4.6 mmol/L (3.5-5.1)
[2023-03-30] MEDS: PANTOPRAZOLE SOD 40 MG TABEC PO SCH (08:53)
[2023-03-30] MEDS: SODIUM CHLORIDE 1 GM TAB PO SCH (08:53)
[2023-03-30] MEDS: SENNA-S TABLET PO SCH (08:53)
[2023-03-30] MEDS: CHOLECALCIFEROL 1,000 UNIT TAB PO SCH (08:54)
[2023-03-30] MEDS: RIVAROXABAN 20 MG TABLET PO SCH (08:54)
[2023-03-30] MEDS: ASCORBIC ACID 500 MG TAB PO SCH (08:54)
[2023-03-30 09:00] VITALS: BP 132/71; PULSE 58; RESP 19; TEMP 98.7; O2SAT 99
== END 2023-03-30 12:08 | disposition home or self-care (01) | DRG 641 ==
LOC: ER 18:16 → ERHOLD 18:52 → ICU 21:09 → MED/SURG3 03-27 21:40
PROVIDERS: ADMIT Internal Medicine; ATTEND Internal Medicine
DX: E87.1 Hypo-osmolality and hyponatremia (principal); I48.20 Chronic atrial fibrillation, unspecified; I12.9 Hypertensive chronic kidney disease with stage 1 through stage 4 chronic kidney disease, or unspecified chronic kidney disease; N18.30 Chronic kidney disease, stage 3 unspecified; E03.9 Hypothyroidism, unspecified; D63.1 Anemia in chronic kidney disease; K57.90 Diverticulosis of intestine, part unspecified, without perforation or abscess without bleeding; G43.909 Migraine, unspecified, not intractable, without status migrainosus; F41.9 Anxiety disorder, unspecified; Z85.528 Personal history of other malignant neoplasm of kidney; Z90.49 Acquired absence of other specified parts of digestive tract; Z79.01 Long term (current) use of anticoagulants
CPT/HCPCS: 36415; 70450; 80048; 80053; 81001; 83930; 83935; 84133; 84295; 84300; 84436; 84443; 84479; 85025; 93005; 99284; J2405; J7030